=== PATIENT | female | born 1945 | race Caucasian/White ===

== ENCOUNTER 2016-11-19 11:26 | Emergency (ER) | payer MEDICARE, OTHER ==
[2016-11-19 11:32] VITALS: TEMP 98.8
[2016-11-19] MEDS ORDERED: SODIUM CHLORIDE 0.9% 1000ML 1,000 ML IVS ONE (11:39)
--- NOTE | 2016-11-19 11:42 | ED.PDOC ---
History of Present Illness - General Chief Complaint: Respiratory Problem Stated Complaint: SOB COUGH Time Seen by Provider: 11/19/16 11:34 Source: patient, RN notes reviewed, Vital Signs reviewed, family Exam Limitations: no limitations - History of Present Illness Comments: Patient reports she started last week with sore throat and congestion that has gone down into her chest. This morning she is SOB and even though she does not use it regularly she started using her oxygen at home. Timing/Duration: week Cough Quality/Degree: moderate, productive cough Possible Cause: no prior episodes Improving Factors: nothing Worsening Factors: nothing Associated Symptoms: cough, fever/chills, headache, nasal congestion, shortness of breath, sore throat Respiratory Risk Factors: exposure to illness Allergies/Adverse Reactions: Allergies Diazepam [From Valium] Allergy (Verified 11/19/16 11:34) Penicillin G Allergy (Verified 11/19/16 11:34) Home Medications: Ambulatory Orders ALPRAZolam [Xanax] 0.5 mg PO BID 10/09/12 Aspirin (Enteric Coated) 81 mg PO AM 10/09/12 Celecoxib [Celebrex] 200 mg PO AM 10/09/12 Clopidogrel Bisulfate [Plavix] 75 mg PO DAILY 10/09/12 Meclizine HCl [Antivert] 25 mg PO TID PRN 10/09/12 Nitroglycerin 0.4 mg (ER Disp) [Nitrostat] 0.4 mg SL PRN PRN 10/09/12 Potassium Chloride Tab [Micro-K] 10 meq PO BID 10/09/12 Simvastatin [Zocor] 20 mg PO HS 10/09/12 Albuterol Sulfate [Proair Hfa] 2 inh IN Q4H PRN 12/07/13 Linaclotide [Linzess] 290 mcg PO DAILY 03/02/14 Chlorzoxazone 500 mg PO QID PRN 05/31/14 Pregabalin [Lyrica] 150 mg PO BEDTIME 12/26/14 Carvedilol [Coreg] 25 mg PO BID #60 tab 12/27/14 Amlodipine Besylate [Norvasc] 5 mg PO DAILY 11/04/15 Torsemide 20 mg PO DAILY 06/01/16 Albuterol Sulfate 1.25 mg IN QID 09/20/16 HYDROcodone 5MG/APAP 325MG [[place] 5/325] 5 - 325 mg PO PRN PRN 09/20/16 Lansoprazole 30 mg PO BID 09/20/16 Azithromycin [Zithromax Z-Fortino] 1 ea PO DAILY #1 pack 11/19/16 Methylprednisolone [Medrol Dose Fortino] 4 mg PO DAILY #1 pack 11/19/16 Review of Systems - Review of Systems Constitutional: States: fever, malaise. Denies: chills, diaphoresis, weakness EENTM: States: ear pain, nose congestion, throat pain. Denies: ear discharge, nose pain Respiratory: States: cough, short of breath. Denies: orthopnea, stridor, wheezing Cardiology: States: no symptoms reported Gastrointestinal/Abdominal: States: nausea. Denies: abdominal pain, constipation, diarrhea, vomiting Genitourinary: States: no symptoms reported Musculoskeletal: States: no symptoms reported Skin: States: no symptoms reported Neurological: States: headache. Denies: numbness, paresthesia, seizure, tingling, tremors, weakness Endocrine: States: no symptoms reported Past Medical History (General) - Patient Medical History Hx Seizures: No Hx Stroke: Yes - TIA Hx Dementia: No Hx Asthma: Yes Hx of COPD: Yes Hx Cardiac Disorders: Yes - Cardiac stents, [place] Hx Congestive Heart Failure: Yes Hx Pacemaker: No Hx Hypertension: Yes Hx Thyroid Disease: No Hx Diabetes: No Hx Gastroesophageal Reflux: Yes Hx Renal Disease: No Hx Cancer: No Hx of HIV: No Hx Hepatitis C: No Hx MRSA: No Surgical History: Hysterectomy - Vaccination History Hx Tetanus, Diphtheria Vaccination: Yes Hx Influenza Vaccination: Yes Hx Pneumococcal Vaccination: Yes Immunizations Up to Date: Yes - Social History Hx Tobacco Use: Yes Hx Chewing Tobacco Use: No Hx Alcohol Use: No Hx Substance Use: No Hx Substance Use Treatment: No Hx Depression: No Feels Threatened In Home Enviroment: No Hx Physical Abuse: No Hx Emotional Abuse: No Hx Suspected Abuse: No - Female History Patient is a Female of Child Bearing Age (10 -59 yrs old): No Patient : No Family Medical History - Family History Mother Family History: Unknown Physical Exam - Physical Exam General Appearance: Alert, Ill Appearing Eye Exam: bilateral normal Neck: non-tender, full range of motion, supple, normal inspection, trachea midline Respiratory: respiratory distress, decreased breath sounds, accessory muscle use Cardiovascular/Chest: regular rate, rhythm, no edema, no gallop, no JVD, no murmur Gastrointestinal/Abdominal: normal bowel sounds, non tender, soft, no organomegaly, no pulsatile mass Extremity: normal range of motion, non-tender, normal inspection Neurologic: no motor/sensory deficits, alert, normal mood/affect, oriented x 3 Skin Exam: normal color, warm/dry Lymphatic: no adenopathy Progress - Progress Progress: 11/19/16 14:18 So far labs, X-ray and chest CT have been unremarkable. Nothing to explain her oxygen saturations in the 80's. Gave Solumedrol, IV Zithromax and Duoneb breathing treatment. Awaiting cardiac labs. 11/19/16 14:44 Discussed lab and radiology results with patient and . Most likely she has acute bronchitis with and exacerbation of her underlying COPD. Will finish IV antibiotics and then D/C home with prescriptions for antibiotics and steroids. She is currently sating 93% on 3L [place]. She has O2 at home. Departure - Departure Clinical Impression: COPD with acute exacerbation, Bronchitis Time of Disposition: 16:02 Disposition: Discharge to Home or Self Care Condition: Good Departure Forms: ED Discharge - Pt. Copy, Patient Portal Self Enrollment Instructions: DI for Acute Bronchitis Diet: resume usual diet Activity: increase activity as tolerated Prescriptions: Methylprednisolone [Medrol Dose Fortino] 4 mg PO DAILY #1 pack Azithromycin [Zithromax Z-Fortino] 1 ea PO DAILY #1 pack Home Medications: Ambulatory Orders ALPRAZolam [Xanax] 0.5 mg PO BID 10/09/12 Aspirin (Enteric Coated) 81 mg PO AM 10/09/12 Celecoxib [Celebrex] 200 mg PO AM 10/09/12 Clopidogrel Bisulfate [Plavix] 75 mg PO DAILY 10/09/12 Meclizine HCl [Antivert] 25 mg PO TID PRN 10/09/12 Nitroglycerin 0.4 mg (ER Disp) [Nitrostat] 0.4 mg SL PRN PRN 10/09/12 Potassium Chloride Tab [Micro-K] 10 meq PO BID 10/09/12 Simvastatin [Zocor] 20 mg PO HS 10/09/12 Albuterol Sulfate [Proair Hfa] 2 inh IN Q4H PRN 12/07/13 Linaclotide [Linzess] 290 mcg PO DAILY 03/02/14 Chlorzoxazone 500 mg PO QID PRN 05/31/14 Pregabalin [Lyrica] 150 mg PO BEDTIME 12/26/14 Carvedilol [Coreg] 25 mg PO BID #60 tab 12/27/14 Amlodipine Besylate [Norvasc] 5 mg PO DAILY 11/04/15 Torsemide 20 mg PO DAILY 06/01/16 Albuterol Sulfate 1.25 mg IN QID 09/20/16 HYDROcodone 5MG/APAP 325MG [[place] 5/325] 5 - 325 mg PO PRN PRN 09/20/16 Lansoprazole 30 mg PO BID 09/20/16 Azithromycin [Zithromax Z-Fortino] 1 ea PO DAILY #1 pack 11/19/16 Methylprednisolone [Medrol Dose Fortino] 4 mg PO DAILY #1 pack 11/19/16
--- NOTE | 2016-11-19 12:45 | RAD ---
EXAM DESCRIPTION: XR CHEST 2 VIEWS CLINICAL HISTORY: cough SOB COMPARISON: September 20, 2016 FINDINGS: Two-view chest x-ray shows cardiomediastinal silhouette and pulmonary vasculature to be within normal limits. Tortuosity of the thoracic aorta is seen. The lungs are mildly hyperinflated without acute appearing infiltrate or consolidation. Coronary artery stents are seen. . Costophrenic angles are sharp. Disc degenerative changes of the spine are seen. Surgical clips in the right mid neck are noted. IMPRESSION: No radiographic evidence of acute cardiopulmonary disease in this emphysematous chest. Electronically signed by: Munir Lund MD 11/19/2016 12:43
--- NOTE | 2016-11-19 13:27 | CT ---
EXAM DESCRIPTION: CT CHEST ANGIOGRAPHY WITH IV CONTRAST CLINICAL HISTORY: SOB with elevated D-Dimer COMPARISON: Chest x-ray same day TECHNIQUE: Post-contrast CTA images of the chest were obtained using pulmonary embolism protocol. 3D MIPS reconstructed images of the pulmonary arterial vasculature are obtained. CT scan done according to ALARA (As Low As Reasonably Achievable). FINDINGS: Severe Coronary artery disease with multiple corner artery stent is seen. There is severe atherosclerotic disease of the thoracic aorta and great vessels without evidence of aneurysmal dilatation or dissection. No definite filling defects or emboli are seen in the pulmonary arteries. No pathologically enlarged mediastinal, hilar, or axillary lymphadenopathy is seen. Visualized portion of the upper abdomen shows no acute findings. Lungs are normally aerated. No acute appearing infiltrates or consolidations are seen. No worrisome pulmonary nodules. Mild linear interstitial thickening in the lung bases as noted bilaterally. Osseous structures show no aggressive bony lesions. Mild degenerative changes of the spine are seen. IMPRESSION: No radiographic evidence of pulmonary embolism. Severe atherosclerotic disease is noted. Mild interstitial scarring or atelectasis is seen in lung bases. Electronically signed by: Munir Lund MD 11/19/2016 13:25
[2016-11-19] MEDS ORDERED: AZITHROMYCIN IV 500 MG in SODIUM CHLORIDE 0.9% 250ML 250 ML IVPB ONE (13:39)
[2016-11-19] MEDS ORDERED: methylPREDNISolone SODIUM SUC 125 MG/2 ML VIAL IV ONE (13:39)
[2016-11-19] MEDS ORDERED: SODIUM CHLORIDE 0.9% 250ML 250 ML ONE (13:44)
[2016-11-19] MEDS ORDERED: AZITHROMYCIN IV 500 MG VIAL IVPB ONE (13:44)
[2016-11-19] MEDS ORDERED: WATER FOR INJ 10 ML VIAL INJ ONE (13:49)
[2016-11-19] MEDS ORDERED: IPRATROPIUM/ALBUTEROL 3 ML VIAL NEB ONE (13:49)
[2016-11-19 16:24] VITALS: BP 127/85; O2SAT 92
== END 2016-11-19 16:24 | disposition home or self-care (01) ==
LOC: ER 11:26
DX: J44.1 Chronic obstructive pulmonary disease with (acute) exacerbation (principal); I25.2 Old myocardial infarction; I11.0 Hypertensive heart disease with heart failure; I50.9 Heart failure, unspecified; Z88.0 Allergy status to penicillin; K21.9 Gastro-esophageal reflux disease without esophagitis; Z88.8 Allergy status to other drugs, medicaments and biological substances; Z87.891 Personal history of nicotine dependence; Z79.899 Other long term (current) drug therapy; Z79.02 Long term (current) use of antithrombotics/antiplatelets; Z79.82 Long term (current) use of aspirin
CPT/HCPCS: 36415; 71020; 71275; 80053; 82550; 82553; 83880; 84484; 85025; 85379; 94640; A4216; J0456; J2930; J7030; J7050; J7620

== ENCOUNTER 2017-01-04 13:35 | Emergency (ER) | payer MEDICARE, OTHER ==
--- NOTE | 2017-01-04 15:12 | RAD ---
PROCEDURE: Chest,2 Views CLINICAL HISTORY: sob INDICATION: Same as above COMPARISON: 11/19/2016 TECHNIQUE: PA and and lateral chest radiographs were obtained. FINDINGS: Note is again made of benign calcific granulomatous lung disease There are no discrete airspace infiltrates, pneumothoraces or pleural effusions. The pulmonary vascularity is normal The cardiomediastinal silhouette is unremarkable for patient's age and sex. IMPRESSION: There is no acute pleural-parenchymal process seen in the imaged lung house. Place of interpretation: [facility]. Electronically signed by: Dank Ross MD 01/04/2017 3:11 PM [employer]
[2017-01-04] MEDS ORDERED: predniSONE 20 MG TAB PO ONE (15:30)
[2017-01-04] MEDS ORDERED: DOXYCYCLINE HYCLATE CAP 100 MG CAP PO ONE (15:30)
[2017-01-04] MEDS ORDERED: IPRATROPIUM/ALBUTEROL 3 ML VIAL NEB ONE (15:30)
--- NOTE | 2017-01-04 15:33 | ED.PDOC ---
History of Present Illness - General Chief Complaint: Respiratory Problem Stated Complaint: shortness of breath Time Seen by Provider: 01/04/17 13:53 Source: patient Exam Limitations: no limitations - History of Present Illness Initial Comments: the patient is a 71-year-old female presenting to the emergency room secondary to progressive shortness of breath over the last week. She does have a long-standing history of COPD with multiple exacerbations in the past. She denies any fevers. She reports having a cough very hard to move up her mucus. She is saturating okay on her home oxygen. No real sore throat and mild runny nose. No syncope or near-syncope. No chest pain otherwise. No palpitations. She does get significantly more short of breath with exertion. Timing/Duration: 1 week Severity: moderate Improving Factors: nothing Worsening Factors: nothing Associated Symptoms: chest pain - with cough, cough, loss of appetite, malaise, shortness of breath Allergies/Adverse Reactions: Allergies Diazepam [From Valium] Allergy (Verified 11/19/16 11:34) Penicillin G Allergy (Verified 11/19/16 11:34) Home Medications: Ambulatory Orders ALPRAZolam [Xanax] 0.5 mg PO BID 10/09/12 Aspirin (Enteric Coated) 81 mg PO AM 10/09/12 Celecoxib [Celebrex] 200 mg PO AM 10/09/12 Clopidogrel Bisulfate [Plavix] 75 mg PO DAILY 10/09/12 Meclizine HCl [Antivert] 25 mg PO TID PRN 10/09/12 Nitroglycerin 0.4 mg (ER Disp) [Nitrostat] 0.4 mg SL PRN PRN 10/09/12 Potassium Chloride Tab [Micro-K] 10 meq PO BID 10/09/12 Simvastatin [Zocor] 20 mg PO HS 10/09/12 Albuterol Sulfate [Proair Hfa] 2 inh IN Q4H PRN 12/07/13 Linaclotide [Linzess] 290 mcg PO DAILY 03/02/14 Chlorzoxazone 500 mg PO QID PRN 05/31/14 Pregabalin [Lyrica] 150 mg PO BEDTIME 12/26/14 Carvedilol [Coreg] 25 mg PO BID #60 tab 12/27/14 Amlodipine Besylate [Norvasc] 5 mg PO DAILY 11/04/15 Torsemide 20 mg PO DAILY 06/01/16 Albuterol Sulfate 1.25 mg IN QID 09/20/16 HYDROcodone 5MG/APAP 325MG [[place] 5/325] 5 - 325 mg PO PRN PRN 09/20/16 Lansoprazole 30 mg PO BID 09/20/16 Azithromycin [Zithromax Z-Fortino] 1 ea PO DAILY #1 pack 11/19/16 Ipratropium/Albuterol [Duoneb] 3 ml NEB Q4HR PRN #25 vial 11/19/16 Methylprednisolone [Medrol Dose Fortino] 4 mg PO DAILY #1 pack 11/19/16 Doxycycline (Monohydrate) [Doxycycline Monohydrate] 100 mg PO DAILY #5 cap 01/04 predniSONE [Prednisone] 20 mg PO DAILY #5 tab 01/04/17 Review of Systems - Review of Systems Constitutional: States: malaise EENTM: States: nose congestion Respiratory: States: cough, short of breath Cardiology: States: no symptoms reported, chest pain - only with cough Gastrointestinal/Abdominal: States: no symptoms reported Genitourinary: States: no symptoms reported Musculoskeletal: States: no symptoms reported Skin: States: no symptoms reported Neurological: States: no symptoms reported Endocrine: States: no symptoms reported All other Systems: No Change from Baseline Past Medical History (General) - Patient Medical History Hx Seizures: No Hx Stroke: Yes - TIA Hx Dementia: No Hx Asthma: Yes Hx of COPD: Yes Hx Cardiac Disorders: Yes - Cardiac stents, [place] Hx Congestive Heart Failure: Yes Hx Pacemaker: No Hx Hypertension: Yes Hx Thyroid Disease: No Hx Diabetes: No Hx Gastroesophageal Reflux: Yes Hx Renal Disease: No Hx Cancer: No Hx of HIV: No Hx Hepatitis C: No Hx MRSA: No - Vaccination History Hx Tetanus, Diphtheria Vaccination: Yes Hx Influenza Vaccination: Yes Hx Pneumococcal Vaccination: Yes - Social History Hx Tobacco Use: Yes Hx Chewing Tobacco Use: No Hx Alcohol Use: No Hx Substance Use: No Hx Substance Use Treatment: No Hx Depression: No Hx Physical Abuse: No Hx Emotional Abuse: No Hx Suspected Abuse: No - Female History Patient : No Family Medical History - Family History Mother Family History: Unknown Physical Exam - Physical Exam General Appearance: Alert, Anxious, No apparent distress Eye Exam: bilateral normal Ears, Nose, Throat: hearing grossly normal, nasal congestion Neck: non-tender, full range of motion, supple Respiratory: chest non-tender, no respiratory distress, no accessory muscle use , rhonchi - scattered, wheezing - mild scattered Cardiovascular/Chest: normal peripheral pulses, regular rate, rhythm, no edema Peripheral Pulses: radial,right: 2+, radial,left: 2+, dorsalis pedis,right: 2+, dorsalis pedis,left: 2+, posterior tibialis,right: 2+, posterior tibialis,left: 2+ Gastrointestinal/Abdominal: non tender, soft Rectal Exam: deferred Back Exam: normal inspection Extremity: normal range of motion, non-tender, normal inspection, no pedal edema , normal capillary refill Neurologic: alert, normal mood/affect, oriented x 3 Skin Exam: normal color Progress - Progress Progress: 01/04/17 15:34 the patient is a 71-year-old female presenting to the emergency room with what appears to be a COPD exacerbation. The patient will be placed on doxycycline and oral prednisone for a period of 5 days. She needs to increase her albuterol treatments to every 4 hours for the next 3 days. She needs to continue her oxygen at home. Additionally she can use preservative-free eyedrops to nebulized between her albuterol treatments to help thin out the mucous secretions. ER warnings were given for any worsening. Keep well- hydrated. Follow up with her primary care doctor early next week. vital signs have been stable and the patient is in no acute distress at this time. 01/04/17 15:36 - Results/Orders Results/Orders: Laboratory Last Values WBC 9.5 K/mm3 (4.8-10.8) 01/04/17 14:04 RBC 5.21 M/mm3 (4.20-5.40) 01/04/17 14:04 Hgb 15.2 gm/dL (12.0-16.0) 01/04/17 14:04 Hct 45.2 % (36.0-47.0) 01/04/17 14:04 MCV 86.7 fl (81.0-99.0) 01/04/17 14:04 MCH 29.2 pg (27.0-31.0) 01/04/17 14:04 MCHC 33.6 g/dL (33.0-37.0) 01/04/17 14:04 RDW 14.9 % (11.5-14.5) H 01/04/17 14:04 Plt Count 307 K/mm3 (130-400) 01/04/17 14:04 MPV 9.5 fl (7.40-10.4) 01/04/17 14:04 Absolute Neuts (auto) 4.30 K/uL (1.8-6.8) 01/04/17 14:04 Absolute Lymphs (auto) 3.20 K/uL (1.0-3.4) 01/04/17 14:04 Absolute Monos (auto) 1.00 K/uL (0.2-0.8) H 01/04/17 14:04 Absolute Eos (auto) 0.90 K/uL (0.0-0.4) H 01/04/17 14:04 Absolute Basos (auto) 0.10 K/uL (0.0-0.1) 01/04/17 14:04 Neutrophils % 45.3 % (42.0-78.0) 01/04/17 14:04 Lymphocytes % 33.9 % (20.0-50.0) 01/04/17 14:04 Monocytes % 11.0 % (2.0-9.0) H 01/04/17 14:04 Eosinophils % 9.2 % (1.0-5.0) H 01/04/17 14:04 Basophils % 0.6 % (0.0-2.0) 01/04/17 14:04 PT 12.0 SECONDS (9.4-12.5) 01/04/17 14:04 INR 1.060 01/04/17 14:04 PTT (SP) 32.7 SECONDS (25.1-36.5) 01/04/17 14:04 D-Dimer, Quantitative 398 ng/mL (0-230) H* 01/04/17 14:04 Sodium 135 mmol/L (135-145) 01/04/17 14:04 Potassium 4.0 mmol/L (3.6-5.0) 01/04/17 14:04 Chloride 101 mmol/L (101-111) 01/04/17 14:04 Carbon Dioxide 24 mmol/L (21-31) 01/04/17 14:04 Anion Gap 14.0 (12-18) 01/04/17 14:04 BUN 13 mg/dL (7-18) 01/04/17 14:04 Creatinine 0.85 mg/dL (0.6-1.3) 01/04/17 14:04 BUN/Creatinine Ratio 15.3 (10-20) 01/04/17 14:04 Random Glucose 113 mg/dL (70-105) H 01/04/17 14:04 Serum Osmolality 271.0 mOsm/L (275-295) L 01/04/17 14:04 Calcium 9.6 mg/dL (8.4-10.2) 01/04/17 14:04 Total Bilirubin 0.7 mg/dL (0.2-1.0) 01/04/17 14:04 AST 23 IU/L (10-42) 01/04/17 14:04 ALT 13 IU/L (10-60) 01/04/17 14:04 Alkaline Phosphatase 103 IU/L (42-121) 01/04/17 14:04 Creatine Kinase 36 IU/L (26-140) 01/04/17 14:04 CK-MB (CK-2) 1.5 ng/mL (0.0-4.4) 01/04/17 14:04 CK-MB (CK-2) % Not Reportable 01/04/17 14:04 Troponin I < 0.02 ng/mL (0.01-0.05) 01/04/17 14:04 B-Natriuretic Peptide 35.1 pg/ml (0-100) 01/04/17 14:04 Serum Total Protein 7.6 gm/dL (6.4-8.2) 01/04/17 14:04 Albumin 4.3 g/dl (3.2-5.5) 01/04/17 14:04 Globulin 3.3 gm/dL (2.3-3.5) 01/04/17 14:04 Albumin/Globulin Ratio 1.3 (1.1-1.9) 01/04/17 14:04 chest x-ray shows no obvious pneumonia. There are changes of COPD. EKG shows normal sinus rhythm with first-degree AV block. She does have a left bundle branch block. Difficult to interpret otherwise. These findings are consistent with previous EKGs. Departure - Departure Clinical Impression: COPD with acute exacerbation Disposition: Discharge to Home or Self Care Condition: Fair Departure Forms: ED Discharge - Pt. Copy, Patient Portal Self Enrollment Instructions: Emphysema, DI for Emphysema Diet: regular diet Activity: increase activity as tolerated Referrals: Faustino Hernandez MD [Primary Care Provider] - 1-5 Days Prescriptions: Doxycycline (Monohydrate) [Doxycycline Monohydrate] 100 mg PO DAILY #5 cap predniSONE [Prednisone] 20 mg PO DAILY #5 tab Home Medications: Ambulatory Orders ALPRAZolam [Xanax] 0.5 mg PO BID 10/09/12 Aspirin (Enteric Coated) 81 mg PO AM 10/09/12 Celecoxib [Celebrex] 200 mg PO AM 10/09/12 Clopidogrel Bisulfate [Plavix] 75 mg PO DAILY 10/09/12 Meclizine HCl [Antivert] 25 mg PO TID PRN 10/09/12 Nitroglycerin 0.4 mg (ER Disp) [Nitrostat] 0.4 mg SL PRN PRN 10/09/12 Potassium Chloride Tab [Micro-K] 10 meq PO BID 10/09/12 Simvastatin [Zocor] 20 mg PO HS 10/09/12 Albuterol Sulfate [Proair Hfa] 2 inh IN Q4H PRN 12/07/13 Linaclotide [Linzess] 290 mcg PO DAILY 03/02/14 Chlorzoxazone 500 mg PO QID PRN 05/31/14 Pregabalin [Lyrica] 150 mg PO BEDTIME 12/26/14 Carvedilol [Coreg] 25 mg PO BID #60 tab 12/27/14 Amlodipine Besylate [Norvasc] 5 mg PO DAILY 11/04/15 Torsemide 20 mg PO DAILY 06/01/16 Albuterol Sulfate 1.25 mg IN QID 09/20/16 HYDROcodone 5MG/APAP 325MG [[place] 5/325] 5 - 325 mg PO PRN PRN 09/20/16 Lansoprazole 30 mg PO BID 09/20/16 Azithromycin [Zithromax Z-Fortino] 1 ea PO DAILY #1 pack 11/19/16 Ipratropium/Albuterol [Duoneb] 3 ml NEB Q4HR PRN #25 vial 11/19/16 Methylprednisolone [Medrol Dose Fortino] 4 mg PO DAILY #1 pack 11/19/16 Doxycycline (Monohydrate) [Doxycycline Monohydrate] 100 mg PO DAILY #5 cap 01/04 predniSONE [Prednisone] 20 mg PO DAILY #5 tab 01/04/17 Additional Instructions: the patient is a 71-year-old female presenting to the emergency room with what appears to be a COPD exacerbation. The patient will be placed on doxycycline and oral prednisone for a period of 5 days. She needs to increase her albuterol treatments to every 4 hours for the next 3 days. She needs to continue her oxygen at home. Additionally she can use preservative-free eyedrops to nebulize between her albuterol treatments to help thin out the mucous secretions. ER warnings were given for any worsening. Keep well- hydrated. Follow up with her primary care doctor early next week.
[2017-01-04 15:58] VITALS: TEMP 97.9
[2017-01-04 16:41] VITALS: BP 109/66; O2SAT 99
== END 2017-01-04 16:20 | disposition home or self-care (01) ==
LOC: ER 13:35
DX: J44.1 Chronic obstructive pulmonary disease with (acute) exacerbation (principal); I44.7 Left bundle-branch block, unspecified; I44.0 Atrioventricular block, first degree; I11.0 Hypertensive heart disease with heart failure; I50.9 Heart failure, unspecified; I25.2 Old myocardial infarction; K21.9 Gastro-esophageal reflux disease without esophagitis; Z88.0 Allergy status to penicillin; Z88.8 Allergy status to other drugs, medicaments and biological substances; Z79.82 Long term (current) use of aspirin; Z79.899 Other long term (current) drug therapy; Z86.73 Personal history of transient ischemic attack (TIA), and cerebral infarction without residual deficits; Z98.61 Coronary angioplasty status; Z87.891 Personal history of nicotine dependence
CPT/HCPCS: 36415; 71020; 80053; 81001; 82550; 82553; 83880; 84484; 85025; 85379; 85610; 85730; 93005; 94640; J7512; J7620

== ENCOUNTER 2017-01-19 13:08 | Emergency (ER) | payer MEDICARE, OTHER ==
--- NOTE | 2017-01-19 14:07 | ED.PDOC ---
History of Present Illness - General Chief Complaint: Respiratory Problem Stated Complaint: shortness of breath, sorethroat cough Time Seen by Provider: 01/19/17 13:52 Source: patient, RN notes reviewed, Vital Signs reviewed, family Exam Limitations: no limitations - History of Present Illness Comments: Patient reports cold symptoms that started 3-4 days ago and are worsening. Runny nose/congestion, cough and SOB. Having to use her oxygen and inhalers more than normal. Concerned that she may have strep and would like to be checked. Timing/Duration: constant, getting worse Cough Quality/Degree: moderate, productive cough Possible Cause: frequent episodes - of COPD exacerbation with bronchitis Improving Factors: medication Worsening Factors: nothing Associated Symptoms: cough, nasal congestion, nasal drainage, shortness of breath, wheezing Respiratory Risk Factors: no cause identified Allergies/Adverse Reactions: Allergies Diazepam [From Valium] Allergy (Verified 01/19/17 13:27) Penicillin G Allergy (Verified 01/19/17 13:27) Home Medications: Ambulatory Orders ALPRAZolam [Xanax] 0.5 mg PO BID 10/09/12 Aspirin (Enteric Coated) 81 mg PO AM 10/09/12 Celecoxib [Celebrex] 200 mg PO AM 10/09/12 Clopidogrel Bisulfate [Plavix] 75 mg PO DAILY 10/09/12 Meclizine HCl [Antivert] 25 mg PO TID PRN 10/09/12 Nitroglycerin 0.4 mg (ER Disp) [Nitrostat] 0.4 mg SL PRN PRN 10/09/12 Potassium Chloride Tab [Micro-K] 10 meq PO BID 10/09/12 Simvastatin [Zocor] 20 mg PO HS 10/09/12 Albuterol Sulfate [Proair Hfa] 2 inh IN Q4H PRN 12/07/13 Linaclotide [Linzess] 290 mcg PO DAILY 03/02/14 Chlorzoxazone 500 mg PO QID PRN 05/31/14 Pregabalin [Lyrica] 150 mg PO BEDTIME 12/26/14 Carvedilol [Coreg] 25 mg PO BID #60 tab 12/27/14 Amlodipine Besylate [Norvasc] 5 mg PO DAILY 11/04/15 Torsemide 20 mg PO DAILY 06/01/16 Albuterol Sulfate 1.25 mg IN QID 09/20/16 HYDROcodone 5MG/APAP 325MG [[place] 5/325] 5 - 325 mg PO PRN PRN 09/20/16 Lansoprazole 30 mg PO BID 09/20/16 Azithromycin [Zithromax Z-Fortino] 1 ea PO DAILY #1 pack 11/19/16 Ipratropium/Albuterol [Duoneb] 3 ml NEB Q4HR PRN #25 vial 11/19/16 Methylprednisolone [Medrol Dose Fortino] 4 mg PO DAILY #1 pack 11/19/16 Doxycycline (Monohydrate) [Doxycycline Monohydrate] 100 mg PO DAILY #5 cap 01/04 predniSONE [Prednisone] 20 mg PO DAILY #5 tab 01/04/17 Methylprednisolone [Medrol Dose Fortino] 4 mg PO DAILY #1 pack 01/19/17 Sulfamethoxazole-Trimethoprim [Bactrim Ds 800-160 mg] 1 tab PO BID #20 tab 01/19 Review of Systems - Review of Systems Constitutional: States: malaise. Denies: chills, fever EENTM: States: see HPI, nose congestion, throat pain Respiratory: States: cough, short of breath, wheezing. Denies: orthopnea, stridor Cardiology: States: no symptoms reported. Denies: chest pain, palpitations Gastrointestinal/Abdominal: States: no symptoms reported Genitourinary: States: no symptoms reported Musculoskeletal: States: no symptoms reported Skin: States: no symptoms reported Neurological: States: no symptoms reported. Denies: headache Endocrine: States: no symptoms reported Hematologic/Lymphatic: States: no symptoms reported Past Medical History (General) - Patient Medical History Hx Seizures: No Hx Stroke: Yes - TIA Hx Dementia: No Hx Asthma: Yes Hx of COPD: Yes Hx Cardiac Disorders: Yes - Cardiac stents, IN Hx Congestive Heart Failure: Yes Hx Pacemaker: No Hx Hypertension: Yes Hx Thyroid Disease: No Hx Diabetes: No Hx Gastroesophageal Reflux: Yes Hx Renal Disease: No Hx Cancer: No Hx of HIV: No Hx Hepatitis C: No Hx MRSA: No Surgical History: tonsillectomy, Hysterectomy - Vaccination History Hx Tetanus, Diphtheria Vaccination: Yes Hx Influenza Vaccination: Yes Hx Pneumococcal Vaccination: Yes - Social History Hx Tobacco Use: Yes Hx Chewing Tobacco Use: No Hx Alcohol Use: No Hx Substance Use: No Hx Substance Use Treatment: No Hx Depression: No Hx Physical Abuse: No Hx Emotional Abuse: No Hx Suspected Abuse: No - Activities of Daily Living Hospice Agency (if applicable):: None - Female History Patient is a Female of Child Bearing Age (10 -59 yrs old): No Patient : No Family Medical History - Family History Mother Family History: Unknown Physical Exam - Physical Exam General Appearance: Alert, Comfortable, No apparent distress, Well Developed, Well Groomed, Well Hydrated, Well Nourished ENT Exam: hearing grossly normal, TMs normal, nasal drainage, pharyngeal erythema Neck: non-tender, full range of motion, supple, lymphadenopathy (R), lymphadenopathy (L) Respiratory: no respiratory distress, no accessory muscle use, crackles - RLL, wheezing - throughout, inspiration Cardiovascular/Chest: regular rate, rhythm, no edema, no gallop, no JVD, no murmur Extremity: normal range of motion, non-tender, normal inspection Neurologic: no motor/sensory deficits, alert, normal mood/affect, oriented x 3 Skin Exam: normal color, warm/dry Lymphatic: no adenopathy Progress - Results/Orders Results/Orders: Laboratory Tests 01/19/17 14:12 WBC 14.7 H RBC 5.29 Hgb 15.4 Hct 46.3 MCV 87.5 MCH 29.1 MCHC 33.3 RDW 15.4 H Plt Count 264 MPV 9.5 Absolute Neuts (auto) 8.80 H Absolute Lymphs (auto) 2.70 Absolute Monos (auto) 1.10 H Absolute Eos (auto) 1.90 H Absolute Basos (auto) 0.10 Neutrophils % 60.2 Lymphocytes % 18.3 L Monocytes % 7.5 Eosinophils % 13.2 H Basophils % 0.8 Sodium 139 Potassium 3.7 Chloride 105 Carbon Dioxide 25 Anion Gap 12.7 BUN 8 Creatinine 0.70 BUN/Creatinine Ratio 11.4 Random Glucose 102 Serum Osmolality 276.1 Calcium 9.9 Total Bilirubin 0.6 AST 22 ALT 16 Alkaline Phosphatase 103 Serum Total Protein 7.7 Albumin 4.4 Globulin 3.3 Albumin/Globulin Ratio 1.3 Vital Signs - 24 hr 01/19/17 01/19/17 13:15 13:29 Temperature 97.6 F Pulse Rate [ 104 H pulse ox] Respiratory 24 24 Rate Blood Pressure 154/65 [Left Arm] O2 Sat by Pulse 95 Oximetry Rapid Strep - Negative - EKG/XRAY/CT XRAY: chest - No acute process per Radiology Departure - Departure Clinical Impression: COPD with acute exacerbation, Bronchitis Time of Disposition: 15:25 Disposition: Discharge to Home or Self Care Condition: Good Departure Forms: ED Discharge - Pt. Copy, Patient Portal Self Enrollment Instructions: DI for Acute Bronchitis, DI for Chronic Obstructive Pulmonary Disease Diet: resume usual diet Activity: increase activity as tolerated Referrals: Faustino Hernandez MD [Primary Care Provider] - 1-5 Days Prescriptions: Sulfamethoxazole-Trimethoprim [Bactrim Ds 800-160 mg] 1 tab PO BID #20 tab Methylprednisolone [Medrol Dose Fortino] 4 mg PO DAILY #1 pack Home Medications: Ambulatory Orders ALPRAZolam [Xanax] 0.5 mg PO BID 10/09/12 Aspirin (Enteric Coated) 81 mg PO AM 10/09/12 Celecoxib [Celebrex] 200 mg PO AM 10/09/12 Clopidogrel Bisulfate [Plavix] 75 mg PO DAILY 10/09/12 Meclizine HCl [Antivert] 25 mg PO TID PRN 10/09/12 Nitroglycerin 0.4 mg (ER Disp) [Nitrostat] 0.4 mg SL PRN PRN 10/09/12 Potassium Chloride Tab [Micro-K] 10 meq PO BID 10/09/12 Simvastatin [Zocor] 20 mg PO HS 10/09/12 Albuterol Sulfate [Proair Hfa] 2 inh IN Q4H PRN 12/07/13 Linaclotide [Linzess] 290 mcg PO DAILY 03/02/14 Chlorzoxazone 500 mg PO QID PRN 05/31/14 Pregabalin [Lyrica] 150 mg PO BEDTIME 12/26/14 Carvedilol [Coreg] 25 mg PO BID #60 tab 12/27/14 Amlodipine Besylate [Norvasc] 5 mg PO DAILY 11/04/15 Torsemide 20 mg PO DAILY 06/01/16 Albuterol Sulfate 1.25 mg IN QID 09/20/16 HYDROcodone 5MG/APAP 325MG [[place] 5/325] 5 - 325 mg PO PRN PRN 09/20/16 Lansoprazole 30 mg PO BID 09/20/16 Azithromycin [Zithromax Z-Fortino] 1 ea PO DAILY #1 pack 11/19/16 Ipratropium/Albuterol [Duoneb] 3 ml NEB Q4HR PRN #25 vial 11/19/16 Methylprednisolone [Medrol Dose Fortino] 4 mg PO DAILY #1 pack 11/19/16 Doxycycline (Monohydrate) [Doxycycline Monohydrate] 100 mg PO DAILY #5 cap 01/04 predniSONE [Prednisone] 20 mg PO DAILY #5 tab 01/04/17 Methylprednisolone [Medrol Dose Fortino] 4 mg PO DAILY #1 pack 01/19/17 Sulfamethoxazole-Trimethoprim [Bactrim Ds 800-160 mg] 1 tab PO BID #20 tab 01/19
--- NOTE | 2017-01-19 14:36 | RAD ---
PROCEDURE: Chest,2 Views CLINICAL HISTORY: Cough/SOB INDICATION: Same as above COMPARISON: 01/04/2017 TECHNIQUE: PA and and lateral chest radiographs were obtained. FINDINGS: The lung house are well inflated. There are no discrete airspace infiltrates, pneumothoraces or pleural effusions. The pulmonary vascularity is normal The cardiomediastinal silhouette is stable. Coronary artery calcification/stents are noted in the right coronary distribution. IMPRESSION: There is no acute pleural-parenchymal process seen in the imaged lung house. Place of interpretation: [facility]. Electronically signed by: Dank Ross MD 01/19/2017 2:35 PM CDT
[2017-01-19] MEDS: methylPREDNISolone SODIUM SUC 125 MG/2 ML VIAL IV ONE (14:40)
[2017-01-19] MEDS: IPRATROPIUM/ALBUTEROL 3 ML VIAL NEB ONE (14:50)
[2017-01-19 14:55] VITALS: O2SAT 96
[2017-01-19 15:49] VITALS: BP 136/72; TEMP 98.2
== END 2017-01-19 15:40 | disposition home or self-care (01) ==
LOC: ER 13:08
DX: J44.1 Chronic obstructive pulmonary disease with (acute) exacerbation (principal); I25.2 Old myocardial infarction; I11.0 Hypertensive heart disease with heart failure; I50.9 Heart failure, unspecified; K21.9 Gastro-esophageal reflux disease without esophagitis; Z87.891 Personal history of nicotine dependence; Z88.0 Allergy status to penicillin; Z88.8 Allergy status to other drugs, medicaments and biological substances; Z79.82 Long term (current) use of aspirin; Z79.899 Other long term (current) drug therapy; Z79.02 Long term (current) use of antithrombotics/antiplatelets; Z86.73 Personal history of transient ischemic attack (TIA), and cerebral infarction without residual deficits
CPT/HCPCS: 36415; 71020; 80053; 85025; 87070; 87651; 94640; J2930; J7620

== ENCOUNTER → 2017-01-22 | Outpatient (CLI) | payer MEDICARE, OTHER | END | disposition home or self-care (01) | LOC: GMAH 11:18 | PROVIDERS: ATTEND Family Medicine | DX: I10 Essential (primary) hypertension (principal) ==

== ENCOUNTER 2017-01-23 15:01 | Inpatient (IN) | payer MEDICARE, OTHER ==
--- NOTE | 2017-01-23 15:02 | HP ---
SUPERVISING PHYSICIAN: Enrrique Montalvo M.D. CHIEF COMPLAINT: Shortness of breath and wheezing. HISTORY OF PRESENT ILLNESS: Ms. Beltrán is a 71 year-old female patient of Dr. Hernandez's who was seen in the clinic today for a routine wellness visit. She has a significant history of chronic obstructive pulmonary disease and in the last 30 days has had multiple episodes of exacerbation of her chronic obstructive pulmonary disease requiring antibiotics and steroids. She was seen in the E. R. this past Friday and given a prescription for Bactrim and a Medrol Dosepak. In the clinic today, the patient was having some significant cough with purulent sputum production and worsening wheezing and dyspnea with O2 sats showing 91% on nasal cannula at 2 liters. The patient is O2 dependent and wears O2 at home 26/05. She is a current smoker approximately half a pack a day. X-rays completed in the clinic compared to this past Friday show no significant changes, just COPD-appearing lungs with no obvious consolidations. Initial white count in the Emergency Room this past Friday was 14,000 and she had a sputum culture that showed normal eddie. Today, laboratory studies in the clinic showed her to have a white count of 17,000. The patient has been on multiple antibiotics this month with initially being placed on Doxycycline on 01/04/17 and again followed-up for additional antibiotic coverage on 01/19/17 and started on Bactrim. Given that the patient has had minimal improvement in her symptoms and continues to have purulent- looking sputum, and worsening of her dyspnea despite utilizing oxygen and multiple rounds of steroids, the patient is going to be admitted directly from the clinic for exacerbation of her chronic obstructive pulmonary disease having failed to respond to outpatient treatment plan. She is admitted in stable condition to the Medical/Surgical floor. PAST MEDICAL HISTORY: 1. Coronary artery disease with stents placed. 2. Chronic obstructive pulmonary disease with tobacco abuse in a current smoker. 3. Abdominal aortic aneurysm followed by Dr. Hernandez. 4. Chronic neck pain after surgery. 5. Hypertension. 6. Congestive heart failure, unknown etiology without a current echocardiogram for review. 7. Atherosclerotic cardiovascular disease and carotid occlusive disease requiring surgery. 8. Gastroesophageal reflux disease. 9. History of left bundle branch block. 10. Chronic constipation. PAST SURGICAL HISTORY: 1. Lower back surgeries times 5 with cervical spine on one occasion. 2. Coronary stents times 6. 3. Carotid endarterectomy in 2015 on the right side. 4. Hysterectomy. 5. Tubal ligation. 6. Left wrist fracture surgery. 7. Tonsillectomy. 8. Adenoidectomy. CURRENT MEDICATIONS: Please refer to the electronic medical records for an updated and verified list of home medications. ALLERGIES: PENICILLIN, DIAZEPAM, AZITHROMYCIN AND VARENICLINE. FAMILY HISTORY: Positive for coronary artery disease, cancers and diabetes. SOCIAL HISTORY: The patient is . She lives in [place]. She is retired. She is a current smoker having smoked for greater than 30 years, continues to smoke approximately half a pack of cigarettes per day. She does not drink alcohol nor does she use any illicit drugs. REVIEW OF SYSTEMS: GENERAL: No significant weight change. Denies any fever or chills. HEENT: Positive for nasal congestion and frequent rhinorrhea. Denies any eye pain or any change in vision. CARDIOVASCULAR: Negative for any chest pains, palpitations or any syncopal episodes. RESPIRATORY: Positive for worsening cough as per History of Present Illness with increasing dyspnea and frequent wheezing. GASTROINTESTINAL: Positive for constipation for which she takes Linzess, but negative for any diarrhea, nausea or vomiting. GENITOURINARY : Negative for any hematuria, polyuria or any other urological complaints. NEUROLOGIC: No focal neurological weaknesses. PHYSICAL EXAMINATION: VITAL SIGNS: Temperature 98.0, pulse 73, blood pressure 143/73, respirations initially 24, short of breath, on nasal cannula satting 94% at 3 liters. Admission weight 71.2 kg. HEENT: Tympanic membranes are clear bilaterally. Oropharynx is pink with dry mucosal membranes noted. There are no lesions. Posterior pharynx is mildly erythematous. NECK: No jugular venous distention. CHEST: Lungs are notably coarse throughout with some inspiratory and expiratory wheezing and diminished breath sounds towards the bases. CARDIOVASCULAR: Regular rate and rhythm without appreciable murmurs, gallops, or rubs. ABDOMEN: Soft, non-tender. Positive bowel sounds. EXTREMITIES: No clubbing, cyanosis or edema. NEUROLOGIC: She is alert and oriented times three. LABORATORY: On admission to the Medical/Surgical floor shows white count 16.5, hemoglobin 16.2, hematocrit 48.2, platelet count 324,000. Differential shows to be without a left shift initially. Chemistries show normal electrolytes with potassium 3.9, BUN 27, creatinine 0.96, glucose 126. Magnesium 2.2, calcium 9.7. BNP was normal at 30. Liver functions show to be within normal limits. Urinalysis showed to be within normal limits. Group A Strep rapid by PCR was negative. MICROBIOLOGY: Influenza A and B by PCR were both negative. She had 2 blood cultures pending. Sputum is pending. RADIOLOGY: Chest x-ray per radiology interpretation shows hyperexpansion of the chest consistent with chronic obstructive pulmonary disease. ASSESSMENT: 1. Acute exacerbation of chronic obstructive pulmonary disease having failed to respond to multiple rounds of antibiotic therapy including corticosteroids with concerns of early pneumonia development. 2. Leukocytosis possibly secondary to number 1, chronic secondary to recent steroid administration. 3. Moderate dehydration. 4. History of coronary artery disease with stents. 5. History of abdominal aortic aneurysm. 6. History of chronic tobacco abuse in a patient with longstanding history of chronic obstructive pulmonary disease. 7. Chronic neck pain and lower back pain. 8. Hypertension. 9. History of congestive heart failure, unknown etiology without current echocardiogram for review with a normal BNP on admission. 10. Gastroesophageal reflux disease. PLAN: The patient will be directly admitted for continuation of treatment of exacerbation of her chronic obstructive pulmonary disease having failed to respond to outpatient treatment. Will obtain cultures and await those results to further target antibiotic therapy. Given that she is allergic to Azithromycin, will change her antibiotic regimen to include Levaquin. Initially she was given Rocephin on direct admission, but later it was discovered that she was allergic to Azithromycin, therefore will change her to Levaquin. She will also be started on Solu-Medrol and aggressive pulmonary hygiene along with bronchodilator treatment. Will start her on some IV fluids for hydration therapy. Anticipate length of stay to be 2 to 3 days with clinical reevaluation along with repeat laboratory studies in the morning. Until discharge, will continue to monitor the patient closely. Once the patient is clinically stable enough to be discharged, she can have close clinical followup in the outpatient setting with continued antibiotic therapy to be seen by Dr. Hernandez, her primary care provider. Until then, will follow the patient closely and treat appropriately. #[id number] [facility]
[2017-01-23] MEDS ORDERED: IPRATROPIUM/ALBUTEROL 3 ML VIAL INH PRN (15:59)
[2017-01-23] MEDS ORDERED: ACETAMINOPHEN 325 MG TAB PO PRN (15:59)
[2017-01-23] MEDS ORDERED: IV SET AND CAP CHANGE INJ INJ SCH (16:00)
[2017-01-23] MEDS ORDERED: cefTRIAXone SODIUM 1 GM in SODIUM CHL 0.9% 50ML MIN-BAG+ 50 ML IVPB SCH (16:00)
[2017-01-23] MEDS ORDERED: SODIUM CHLORIDE 0.9% 250ML 250 ML ONE (16:26)
[2017-01-23] MEDS ORDERED: SODIUM CHL 0.9% 50ML MIN-BAG+ 50 ML IVPB ONE (16:27)
[2017-01-23] MEDS ORDERED: cefTRIAXone SODIUM 1 GM VIAL ONE (16:27)
[2017-01-23] MEDS ORDERED: AZITHROMYCIN IV 500 MG VIAL IVPB ONE (16:28)
[2017-01-23] MEDS ORDERED: AZITHROMYCIN IV 500 MG in SODIUM CHLORIDE 0.9% 250ML 250 ML IVPB SCH (16:30)
--- NOTE | 2017-01-23 17:04 | RAD ---
EXAM DESCRIPTION: Chest,2 Views CLINICAL HISTORY: 71 years Female, COPD exacerbation COMPARISON: January TECHNIQUE: PA/lateral FINDINGS: Hyperexpansion of the chest is observed. No focal infiltrate is noted. The heart is within range of normal. Coronary artery calcification is noted. IMPRESSION: Hyperexpansion the chest is observed consistent with chronic obstructive pulmonary disease. Its more pronounced than seen previously. Electronically signed by: Pee Christine MD 01/23/2017 5:04 PM CDT
[2017-01-23] MEDS: methylPREDNISolone SODIUM SUC 40 MG/ML VIAL IV SCH ×2 (17:19→22:30)
[2017-01-23] MEDS: IPRATROPIUM/ALBUTEROL 3 ML VIAL INH SCH ×2 (17:30→20:55)
[2017-01-23] MEDS ORDERED: NICOTINE PATCH 14 MG TD SCH (18:00)
[2017-01-23] MEDS ORDERED: SODIUM CHLORIDE 0.9% 1000ML 0 ML ONE (18:00)
[2017-01-23] MEDS: SODIUM CHLORIDE 0.45% 1000ML 1,000 ML IVS PRN (18:02)
[2017-01-23] MEDS ORDERED: levoFLOXacin 500MG IV 100 ML IVPB ONE (20:51)
[2017-01-23] MEDS: guaiFENesin ER TAB 600 MG TAB PO SCH (20:57)
[2017-01-23] MEDS: levoFLOXacin 500MG IV 500 MG in PREMIX BAG 1 BAG IVPB SCH (20:57)
[2017-01-24] MEDS ORDERED: PANTOPRAZOLE SODIUM IV 40 MG VIAL ONE (01:34)
[2017-01-24] MEDS ORDERED: SODIUM CHLORIDE 0.9% 10 ML VIAL ONE (01:34)
[2017-01-24] MEDS: methylPREDNISolone SODIUM SUC 40 MG/ML VIAL IV SCH ×4 (04:12→22:30)
[2017-01-24] MEDS: SODIUM CHLORIDE 0.9% (FLUSH) 10 ML SYG IV PRN ×3 (04:16→22:30)
[2017-01-24] MEDS ORDERED: PANTOPRAZOLE SODIUM IV 40 MG VIAL IV SCH (06:30)
--- NOTE | 2017-01-24 07:22 | RAD ---
EXAM: Two view chest. INDICATION: Chest pain. COMPARISON: Chest x-ray: 01/23/2017. FINDINGS: Cardiac silhouette: Unremarkable. Ester: Unremarkable. Lobar consolidation: None. Pleural effusion: None. Pneumothorax: None. Other: None Bones: Unremarkable. Other: None. IMPRESSION: No acute cardiopulmonary abnormality Electronically signed by: Rajiv Markham MD 01/24/2017 7:20 AM CDT
[2017-01-24] MEDS: IPRATROPIUM/ALBUTEROL 3 ML VIAL INH SCH ×4 (08:25→20:26)
[2017-01-24] MEDS: guaiFENesin ER TAB 600 MG TAB PO SCH ×2 (08:59→20:39)
[2017-01-24] MEDS: NICOTINE PATCH 14 MG TD SCH (08:59)
[2017-01-24] MEDS ORDERED: SODIUM CHLORIDE 0.9% 10 ML VIAL IV PRN (09:14)
[2017-01-24] MEDS: SODIUM CHLORIDE 0.45% 1000ML 1,000 ML IVS PRN ×2 (11:04→23:58)
[2017-01-24] MEDS ORDERED: LANSOPRAZOLE 30 MG PO SCH (12:15)
[2017-01-24] MEDS: CLOPIDOGREL 75 MG TAB PO SCH (13:35)
[2017-01-24] MEDS: amLODIPine BESYLATE 5 MG TAB PO SCH (13:35)
[2017-01-24] MEDS: CARVEDILOL 12.5 MG TAB PO SCH ×2 (13:35→20:39)
[2017-01-24] MEDS: PANTOPRAZOLE SODIUM TAB 40 MG PO SCH (17:03)
[2017-01-24] MEDS: NON-FORMULARY MEDICATION 1 EA MIS (Linaclotide [Linzess] 290 MCG) PO SCH (17:04)
[2017-01-24] MEDS ORDERED: levoFLOXacin 500MG IV 100 ML IVPB ONE (19:59)
--- NOTE | 2017-01-24 20:14 | PN ---
DATE: 01/24/17 SUPERVISING PHYSICIAN: Hossein Lugo M.D. SUBJECTIVE: The patient says she feels somewhat better but continues to have a significant cough and is unable to fully clear sputum. She does still have some shortness of breath despite utilizing O2 with nasal cannula, but remains afebrile. OBJECTIVE: VITAL SIGNS: T max 97.5, pulse 94, blood pressure 186/68, respirations 18, O2 sat showing 92% nasal cannula at 2 liters at rest. I's and O's show a negative balance of 331 with 1469 in, 1800 out. Weight 73.1 kg. CHEST: Lung sounds are somewhat improved today, although she continues to have some coarse sounds towards the bases but no audible wheezing is noted today. Breath sounds do continue to be diminished. HEART: Regular rate and rhythm. ABDOMEN: Soft, non-tender. Positive bowel sounds. EXTREMITIES: No clubbing, cyanosis or edema. NEUROLOGIC: She is alert and oriented times three. LABORATORY: White count now has normalized to 10.7, hemoglobin 15.1, hematocrit 45.3, platelet count 301,000. Differential does show a left shift today. Chemistries show normal electrolytes with potassium 4.3, BUN 22, creatinine 0.73. RADIOLOGY: Repeat chest x-ray today per radiology interpretation of two view chest shows no acute cardiopulmonary abnormalities. ASSESSMENT: 1. Acute exacerbation of chronic obstructive pulmonary disease having failed to respond to multiple rounds of antibiotic therapy, including corticosteroids in the outpatient setting with concerns now for early developing pneumonia versus bronchitis. 2. Leukocytosis likely secondary to number 1, possibly some degree of steroid administration although showing normalization today. 3. Moderate dehydration, improved after IV therapy. 4. History of coronary artery disease with stents. 5. History of abdominal aortic aneurysm. 6. History of chronic tobacco abuse in a patient with longstanding history of chronic obstructive pulmonary disease. 7. Chronic neck pain and lower back pain. 8. Hypertension. 9. History of congestive heart failure, unknown etiology without any current echocardiogram for review with normal BNP on admission. 10. Gastroesophageal reflux disease. PLAN: Will continue with current plan of care with the addition of bronchial hygiene increasing to utilize CPT to help with mobilization of some secretions along with adding Mucinex to her medication regimen. She is on Levaquin currently as she mentioned later after admission that she was allergic to Azithromycin. She did get 1 dose of Rocephin. Anticipate possible discharge maybe tomorrow or Friday. Until then, will continue to monitor the patient closely and treat appropriately. #[id number] [facility]
[2017-01-24] MEDS: levoFLOXacin 500MG IV 500 MG in PREMIX BAG 1 BAG IVPB SCH (20:31)
[2017-01-24] MEDS: SIMVASTATIN 20 MG TAB PO SCH (20:39)
[2017-01-24] MEDS: ALPRAZolam 0.5 MG TAB PO PRN (20:45)
[2017-01-24] MEDS: PROMETHAZINE W/CODEINE SYR 5 ML UD PO PRN (22:59)
[2017-01-25] MEDS: methylPREDNISolone SODIUM SUC 40 MG/ML VIAL IV SCH ×2 (04:35→10:23)
[2017-01-25] MEDS: PANTOPRAZOLE SODIUM TAB 40 MG PO SCH ×2 (06:13→16:25)
[2017-01-25] MEDS: NON-FORMULARY MEDICATION 1 EA MIS (Linaclotide [Linzess] 290 MCG) PO SCH (06:14)
[2017-01-25] MEDS: IPRATROPIUM/ALBUTEROL 3 ML VIAL INH SCH ×4 (07:30→19:35)
[2017-01-25] MEDS: POTASSIUM CHLORIDE 10 MEQ TAB PO SCH ×2 (08:02→16:25)
[2017-01-25] MEDS: NICOTINE PATCH 14 MG TD SCH (08:50)
[2017-01-25] MEDS: CELECOXIB 100 MG CAP PO SCH (08:50)
[2017-01-25] MEDS: ASPIRIN EC 81 MG TAB PO SCH (08:51)
[2017-01-25] MEDS: amLODIPine BESYLATE 5 MG TAB PO SCH (08:51)
[2017-01-25] MEDS: guaiFENesin ER TAB 600 MG TAB PO SCH ×2 (08:51→20:32)
[2017-01-25] MEDS: CARVEDILOL 12.5 MG TAB PO SCH ×2 (08:51→20:32)
[2017-01-25] MEDS: CLOPIDOGREL 75 MG TAB PO SCH (08:51)
[2017-01-25] MEDS: TORSEMIDE TAB 20 MG PO SCH (08:51)
[2017-01-25] MEDS: SODIUM CHLORIDE 0.45% 1000ML 1,000 ML IVS PRN (13:56)
--- NOTE | 2017-01-25 16:21 | PN ---
DATE: 01/25/17 SUPERVISING PHYSICIAN: Hossein Lugo M.D. SUBJECTIVE: The patient continues to improve clinically. We did start CPT which has been doing well to help the patient mobilize her sputum. She continues to have some shortness of breath but notes it has improved and she does wear oxygen at home. She remains afebrile as well. OBJECTIVE: VITAL SIGNS: T max 98.0, pulse 70, blood pressure 130/68, respirations 18, O2 sat 94% nasal cannula at 2 liters at rest. I's and O's show a negative balance of 1446 with 3254 in, 4700 out. She has had 1 bowel movement. Weight 73.1 kg. CHEST: Lungs are fairly clear today but continue to be diminished towards the bases. There is no audible wheezing. HEART: Regular rate and rhythm. ABDOMEN: Soft, non-tender. Positive bowel sounds. EXTREMITIES: No clubbing, cyanosis or edema. NEUROLOGIC: She is alert and oriented times three. LABORATORY: White count did increase to 15.1 from 10.7 yesterday, although she remains on steroids. Hemoglobin 14.4, hematocrit 43.5, platelet count 333,000. Differential continues to show a left shift. Chemistries show to be within normal limits with potassium 4.0, BUN 18, creatinine 0.7, calcium 9.4. MICROBIOLOGY: Blood cultures remain negative after 24 hours. Sputum culture shows no growth at 48 hours. Group A Strep was not isolated at 48 hours. RADIOLOGY: Repeat chest x-ray will be done in the morning. ASSESSMENT: 1. Acute exacerbation of chronic obstructive pulmonary disease having failed to respond to multiple rounds of antibiotic therapy that included corticosteroids in the outpatient setting with concerns for early developing of pneumonia versus bronchitis. 2. Leukocytosis likely secondary to number 1, although initially improved has reoccurred likely secondary to continuation of corticosteroids. 3. Moderate dehydration, improved after IV therapy. 4. History of coronary artery disease with stents. 5. History of abdominal aortic aneurysm. 6. History of chronic tobacco abuse in a patient with longstanding history of chronic obstructive pulmonary disease. 7. Chronic neck and lower back pain. 8. Hypertension. 9. History of congestive heart failure, unknown etiology without a current echocardiogram for review with her BNP being normal on admission. 10. Gastroesophageal reflux disease. PLAN: The patient continues to show good improvement clinically. Will continue with current plan of care to include corticosteroids with a continued tapered dose with starting of p.o. Prednisone in the morning. Will continue with Levofloxacin for antibiotic coverage and provide her with aggressive pulmonary hygiene treatments. Hope to discharge in the morning after reevaluation of CBC, x-rays and clinical presentation. Until then, will continue to monitor the patient closely and treat appropriately. #[id number] [facility]
[2017-01-25] MEDS: PROMETHAZINE W/CODEINE SYR 5 ML UD PO PRN (18:18)
[2017-01-25] MEDS ORDERED: levoFLOXacin 500MG IV 100 ML IVPB ONE (18:50)
[2017-01-25] MEDS: levoFLOXacin 500MG IV 500 MG in PREMIX BAG 1 BAG IVPB SCH (20:24)
[2017-01-25] MEDS: ALPRAZolam 0.5 MG TAB PO PRN (20:32)
[2017-01-25] MEDS: SIMVASTATIN 20 MG TAB PO SCH (20:33)
--- NOTE | 2017-01-25 22:40 | PCM.CORE ---
Physician DVT/VTE - Nurse DVT Assessment & Total Each Risk Factor Represents 3 Points: Hx of DVT/PE, Medical PT with Hx of OK, CHF, Severe infection/sepsis Each Risk Factor Represents 2 Points: Age 60-74 Each Risk Factor Represents 1 Point: Medical PT at Bed Rest, Hx of smoking past year Each Risk Factor is 1 Point: Obesity (BMI >25) DVT Assessment Score: 11 - 5 or more Very High Risk Treatments: Early Ambulation *, Sequential Compression Device Pharmacological: Enoxaparin 40mg SQ Daily
[2017-01-25] MEDS ORDERED: ENOXAPARIN SODIUM 40 MG/0.4 ML SYG SUBCU SCH (23:00)
[2017-01-26] MEDS: SODIUM CHLORIDE 0.45% 1000ML 1,000 ML IVS PRN (03:08)
[2017-01-26] MEDS: PANTOPRAZOLE SODIUM TAB 40 MG PO SCH (06:11)
[2017-01-26] MEDS: NON-FORMULARY MEDICATION 1 EA MIS (Linaclotide [Linzess] 290 MCG) PO SCH (06:11)
--- NOTE | 2017-01-26 06:50 | RAD ---
EXAM: Two view chest. INDICATION: Chest pain. COMPARISON: Chest x-ray: 01/24/2017. FINDINGS: Cardiac silhouette: Unremarkable. Ester: Unremarkable. Lobar consolidation: None. Pleural effusion: None. Pneumothorax: None. Other: None. Bones: Unremarkable. Other: None. IMPRESSION: 1. No acute cardiopulmonary process. Electronically signed by: Rajiv Markham MD 01/26/2017 6:49 AM CDT
[2017-01-26] MEDS ORDERED: predniSONE 20 MG TAB ONE (07:24)
[2017-01-26] MEDS: IPRATROPIUM/ALBUTEROL 3 ML VIAL INH SCH ×2 (07:30→11:35)
[2017-01-26] MEDS: POTASSIUM CHLORIDE 10 MEQ TAB PO SCH (08:02)
[2017-01-26] MEDS: ASPIRIN EC 81 MG TAB PO SCH (08:56)
[2017-01-26] MEDS: CELECOXIB 100 MG CAP PO SCH (08:56)
[2017-01-26] MEDS: TORSEMIDE TAB 20 MG PO SCH (08:56)
[2017-01-26] MEDS: amLODIPine BESYLATE 5 MG TAB PO SCH (08:56)
[2017-01-26] MEDS: guaiFENesin ER TAB 600 MG TAB PO SCH (08:56)
[2017-01-26] MEDS: CLOPIDOGREL 75 MG TAB PO SCH (08:56)
[2017-01-26] MEDS: CARVEDILOL 12.5 MG TAB PO SCH (08:56)
[2017-01-26] MEDS: NICOTINE PATCH 14 MG TD SCH (08:56)
[2017-01-26] MEDS ORDERED: predniSONE 20 MG TAB PO SCH (09:00)
[2017-01-26 10:11] VITALS: BP 145/69; TEMP 97.8
[2017-01-26 13:58] VITALS: O2SAT 94
[2017-01-26] MEDS ORDERED: ENOXAPARIN SODIUM 40 MG/0.4 ML SYG SUBCU SCH (21:00)
--- NOTE | 2017-01-27 09:48 | DS ---
SUPERVISING PHYSICIAN: Hossein Lugo MD DISCHARGE DIAGNOSIS: 1. Acute exacerbation of chronic obstructive pulmonary disease having failed to respond to multiple rounds of antibiotic therapy in outpatient setting that included corticosteroids with concerns for early developing of pneumonia versus chronic bronchitis. 2. Leukocytosis likely secondary to number 1, showing improvement although reoccurrence that was felt to be secondary to initiation of corticosteroids. 3. Moderate dehydration, improved after IV therapy. 4. History of coronary artery disease with stents. 5. History of abdominal aortic aneurysm. 6. History of chronic tobacco abuse in a patient with longstanding history of chronic obstructive pulmonary disease who does wear oxygen p.r.n. 7. Chronic neck and lower back pain. 8. Hypertension. 9. History of congestive heart failure, unknown etiology without a current echocardiogram for review with her BNP being normal on admission. 10. Gastroesophageal reflux disease. HISTORY OF PRESENT ILLNESS: Ms. Beltrán is a 71 year-old female patient of Dr. Hernandez'matthew who was seen in the clinic on date of admission for routine wellness visit. She has a significant history of chronic obstructive pulmonary disease and in the last 30 days has had multiple episodes and exacerbation of her chronic obstructive pulmonary disease requiring antibiotics and steroids. She was seen in the Emergency Room this past Friday prior to admission and was given a prescription for Bactrim and a Medrol Dosepak. In the clinic on admission date, the patient was having a significant cough with purulent sputum production, worsening wheezing and dyspnea with 02 saturation showing 91% on nasal cannula at 2 liters. The patient is 02 dependent and wears 02 at home 26/05. She is currently as smoker, approximately half pack a day. X-rays in the clinic completed showed this past Friday as well, no significant changes, just chronic obstructive pulmonary disease appearing lungs with no obvious consolidations. Initial white count in the Emergency Department this past Friday was 14,000, sputum culture showed normal eddie. On date of admission her laboratory studies in the clinic showed her to have a white count of 17,000. The patient has been on multiple antibiotics in the month with initially being on doxycycline on 01/04/17 and again followed up for additional antibiotic coverage on 01/19/17 and was started on Bactrim. Given that the patient has been on multiple rounds of antibiotics with minimal improvement in her symptoms and continues to have purulent looking sputum, worsening dyspnea despite her oxygen and multiple rounds of steroids as well, the patient was admitted directly from the clinic for exacerbation of her chronic obstructive pulmonary disease having failed to respond to outpatient treatment. She was admitted in stable condition. LABORATORY: White count initially on admission was 16.5. It did decrease to a low of 10.7, however, after initiation of corticosteroids it increased to 15.1 and at time of discharge was 15.3. Hemoglobin and hematocrit remained stable and at discharge was 14.3 and 43.9. Platelet count was within normal limits at 328,000. Differential did show a left shift. Chemistries initially on admission showed normal electrolytes. They remained fairly normal and at discharge her potassium was slightly low at 3.4 but she did have good diuresis while she was in the hospital. BUN and creatinine showed to be 27 and 0.96 on admission, discharge was 25, creatinine 0.74. Liver functions on admission showed to be within normal limits. BNP normal at 30. Urinalysis on admission was within normal limits. She also had a group A strep that was negative as well as a group A culture that showed no group A isolated at 48 hours. She also had influenza A by PCR testing that showed to be negative. She had blood cultures x2 that remained negative after 3 days as well as she had a sputum culture that showed normal eddie at 48 hours. RADIOLOGY: Initial chest x-ray on admission per radiology interpretation showed hyperexpansion of the chest consistent with chronic obstructive pulmonary disease more pronounced than previous x-rays. Repeat x-ray after admission per radiology interpretation, 2-view chest showed no acute cardiopulmonary abnormalities. Last x-ray on followup prior to discharge per radiology interpretation showed no acute cardiopulmonary processes. HOSPITAL COURSE: Ms. Beltrán is a 71 year-old female patient who was admitted as noted in the history of present illness for exacerbation of chronic obstructive pulmonary disease. She was started on antibiotics that included Levaquin, corticosteroids with Solu-Medrol and acute Duoneb treatments along with CPT therapy. She did show good improvement in her symptoms and on date of discharge was felt to be clinically improved well enough to be discharged home to continue with antibiotic therapy in the outpatient setting and have close clinical followup with Dr. Hernandez. PLAN: The patient was discharged on 01/26/17 with instructions to call Dr. Hernandez's office on Friday to have scheduled followup within the next 7 days or earlier. She was to resume all her previous medications except to stop the antibiotics and if not finished, the Medrol Dosepak. She was instructed to stop smoking and to not smoke with her oxygen. She was to use her oxygen as prescribed and as instructed to assist with her oxygenation levels. She was to continue with incentive spirometry exercises to help improve lung function and also encouraged to increase her activities as tolerated. She was instructed to return to the hospital should she have any worsening of her condition or no improvement in her symptoms. At time of discharge, new prescriptions included: 1. Levofloxacin 500 mg, #7. 2. Guaifenesin extended release 600 mg twice a day #14. 3. Prednisone tapering Dosepak 20 mg tablet with 40 mg daily starting on day 5 , #14. All other medications were continued as noted in medical records. She was discharged in stable condition. Diet to be advanced to regular as prior to admission to the hospital. #[id number] [facility]
== END 2017-01-26 12:45 | disposition home health service (06) | DRG 190 ==
LOC: MS 15:01
PROVIDERS: ADMIT Nurse Practitioner Family; ATTEND Nurse Practitioner Family
DX: J44.0 Chronic obstructive pulmonary disease with (acute) lower respiratory infection (principal); J18.9 Pneumonia, unspecified organism; J44.1 Chronic obstructive pulmonary disease with (acute) exacerbation; J40 Bronchitis, not specified as acute or chronic; E86.0 Dehydration; I25.10 Atherosclerotic heart disease of native coronary artery without angina pectoris; G89.29 Other chronic pain; M54.2 Cervicalgia; M54.5 Low back pain; I11.0 Hypertensive heart disease with heart failure; I50.9 Heart failure, unspecified; I71.4 Abdominal aortic aneurysm, without rupture; I44.7 Left bundle-branch block, unspecified; K59.00 Constipation, unspecified; K21.9 Gastro-esophageal reflux disease without esophagitis; F17.210 Nicotine dependence, cigarettes, uncomplicated; Z99.81 Dependence on supplemental oxygen; Z95.5 Presence of coronary angioplasty implant and graft; Z88.0 Allergy status to penicillin; Z88.1 Allergy status to other antibiotic agents; Z88.8 Allergy status to other drugs, medicaments and biological substances

== ENCOUNTER 2017-11-03 11:15 | Emergency (ER) | payer MEDICARE, OTHER ==
[2017-11-03] MEDS ORDERED: IPRATROPIUM/ALBUTEROL 3 ML VIAL NEB ONE ×2 (11:26→11:29)
[2017-11-03] MEDS ORDERED: methylPREDNISolone SODIUM SUC 125 MG/2 ML VIAL IV ONE (11:29)
--- NOTE | 2017-11-03 11:32 | ED.PDOC ---
History of Present Illness - General Chief Complaint: Respiratory Problem Stated Complaint: fever, sob Time Seen by Provider: 11/03/17 11:26 Source: patient, family - History of Present Illness Initial Comments: PT PRESENTS TO THE ED WITH COMPLAINT OF SOB, COUGH, FEVER, AND BODYACHES FOR THE PAST 4 DAYS. PT BECAME ACUTELY SOB EN ROUTE TO THE ED. PT REQUIRES MY IMMEDIATE ATTENTION. Activities at Onset: none Improving Factors: nothing Associated Symptoms: cough, fever Allergies/Adverse Reactions: Allergies Diazepam [From Valium] Allergy (Verified 11/03/17 11:28) Penicillin G Allergy (Verified 11/03/17 11:28) Azithromycin [From Zithromax Z-Fortino] Adverse Reaction (Intermediate, Verified 11/20 11:28) Other Pt states "it doesn't work on me". Varenicline [From Chantix] Adverse Reaction (Intermediate, Verified 11/03/17 11: 28) Other Loses appetite and "I become a zombie, I don't talk or eat or interact with anyone". Home Medications: Ambulatory Orders Aspirin (Enteric Coated) 81 mg PO AM 10/09/12 Celecoxib [Celebrex] 200 mg PO AM 10/09/12 Clopidogrel Bisulfate [Plavix] 75 mg PO DAILY 10/09/12 Meclizine HCl [Antivert] 25 mg PO TID PRN 10/09/12 Nitroglycerin 0.4 mg (ER Disp) [Nitrostat] 0.4 mg SL PRN PRN 10/09/12 Potassium Chloride Tab [Micro-K] 10 meq PO BID 10/09/12 Simvastatin [Zocor] 20 mg PO HS 10/09/12 Albuterol Sulfate [Proair Hfa] 2 inh IN Q4H 12/07/13 Linaclotide [Linzess] 290 mcg PO DAILY 03/02/14 Pregabalin [Lyrica] 150 mg PO BEDTIME 12/26/14 Carvedilol [Coreg] 25 mg PO BID #60 tab 12/27/14 Amlodipine Besylate [Norvasc] 5 mg PO DAILY 11/04/15 Torsemide 20 mg PO DAILY 06/01/16 Lansoprazole 30 mg PO BID 09/20/16 Methylprednisolone [Medrol Dose Fortino] 4 mg PO DAILY #1 pack 11/19/16 Sulfamethoxazole-Trimethoprim [Bactrim Ds 800-160 mg] 1 tab PO BID #20 tab 01/19 ALPRAZolam [Xanax] 0.5 mg PO BID PRN 01/23/17 Albuterol Sulfate 1.25 mg NEB QID 01/23/17 guaiFENesin ER TAB [Mucinex Tab] 600 mg PO BID #14 tab 01/26/17 levoFLOXacin [Levaquin] 500 mg PO DAILY #7 tab 01/26/17 predniSONE 40 mg PO DAILY #14 tab 01/26/17 Benzonatate Perles [Tessalon Perles] 200 mg PO TID PRN #30 cap 11/03/17 Levofloxacin [Levaquin] 750 mg PO DAILY 5 Days #5 tablet 11/03/17 Prednisone 50 mg PO DAILY 5 Days #5 tab 11/03/17 Review of Systems - Review of Systems Constitutional: States: fever, malaise. Denies: chills EENTM: States: nose congestion. Denies: throat pain Respiratory: States: see HPI, cough, short of breath Cardiology: Denies: chest pain, syncope Gastrointestinal/Abdominal: Denies: nausea, vomiting Genitourinary: Denies: dysuria, frequency Musculoskeletal: Denies: joint pain, joint swelling Skin: Denies: dryness, lesions Neurological: Denies: headache, paresthesia Past Medical History (General) - Patient Medical History Hx Seizures: No Hx Stroke: Yes - Mini-Strokes Hx Dementia: No Hx Asthma: No Hx of COPD: Yes Hx Cardiac Disorders: Yes - Cardiac stents, [place] Hx Congestive Heart Failure: Yes Hx Pacemaker: No Hx Hypertension: Yes Hx Thyroid Disease: No Hx Diabetes: No Hx Gastroesophageal Reflux: Yes Hx Renal Disease: No Hx Cancer: No Hx of HIV: No Hx Hepatitis C: No Hx MRSA: No - Vaccination History Hx Tetanus, Diphtheria Vaccination: Yes Hx Influenza Vaccination: Yes Hx Pneumococcal Vaccination: Yes - Social History Hx Tobacco Use: Yes Hx Chewing Tobacco Use: No Hx Alcohol Use: No Hx Substance Use: No Hx Substance Use Treatment: No Hx Depression: No Hx Physical Abuse: No Hx Emotional Abuse: No Hx Suspected Abuse: No - Female History Patient : No Family Medical History - Family History Mother Family History: Unknown Name: Mother Living Status: Age at (years of age): 80 Cause of : Cardiac Disease and Cancer Hx Family Asthma: Yes Hx Family Congestive Heart Failure: No Hx Family Hypertension: Yes Hx Family Stroke: Yes Hx Cardiac Disease: Yes Hx Family Diabetes: Yes Hx Family Cancer: Yes Physical Exam - Physical Exam General Appearance: Alert, Anxious, Obvious distress, Well Hydrated, Well Nourished Eyes, Ears, Nose, Throat Exam: normal ENT inspection Neck: non-tender, full range of motion, supple Respiratory: respiratory distress, decreased breath sounds, accessory muscle use , wheezing Cardiovascular/Chest: no murmur, tachycardia Gastrointestinal/Abdominal: non tender, soft Extremity: normal range of motion, non-tender, normal inspection Neurologic: alert, oriented x 3 Skin Exam: normal color, warm/dry Lymphatic: no adenopathy Progress - Progress Progress: 11/03/17 12:15 PT REPORTS SIGNIFICANT IMPROVEMENT IN DYSPNEA AFTER DUONEB X 2. WHEEZING HAS RESOLVED. 11/03/17 14:38 PT CONTINUES TO REST COMFORTABLY, NO RESPIRATORY DISTRESS, LUNGS REMAIN CTA AFTER IV MAGNESIUM AND LEVAQUIN. PT WAS ABLE TO AMBULATE TO BATHROOM WITH DIFFICULTY. LABS AND DIAGNOSTICS DISCUSSED. PT FEELS COMFORTABLE BEING DISCHARGED HOME. - Results/Orders Results/Orders: 11/03/17 11:26 BLOOD CULTURE Stat EKG Assessment DAILY 11/03/17 11:27 Pulse Ox Stat 11/03/17 11:28 Telemetry ONCE Oxygen Delivery Assessment: QSHIFT Oxygen Stat Pulse Oximetry Assessment DAILY 11/03/17 11:30 EKG STAT Laboratory Results - last 24 hr 11/03/17 11/03/17 11/03/17 11:40 11:50 11:50 WBC 19.8 H RBC 4.91 Hgb 14.6 Hct 43.1 MCV 87.7 MCH 29.7 MCHC 33.9 RDW 13.3 Plt Count 353 MPV 9.1 Absolute Neuts (auto) 15.00 H Absolute Lymphs (auto) 2.20 Absolute Monos (auto) 2.10 H Absolute Eos (auto) 0.30 Absolute Basos (auto) 0.20 H Neutrophils % 75.5 Lymphocytes % 11.2 L Monocytes % 10.8 H Eosinophils % 1.7 Basophils % 0.8 pCO2 29 L pO2 102 HCO3 20.9 ABG pH 7.480 H ABG O2 Saturation 99.6 H ABG Base Excess -1.0 ABG Deoxyhemoglobin 0.4 Oxyhemoglobin % 97.3 Carboxyhemoglobin % 1.5 Methemoglobin % Sat 0.7 Calc Total Hemoglobin 14.3 Sodium 131 L Potassium 4.1 Chloride 97 L Carbon Dioxide 22 Anion Gap 16.1 BUN 8 Creatinine 0.68 BUN/Creatinine Ratio 11.8 Random Glucose 132 H Serum Osmolality 262.9 L Calcium 9.8 Total Bilirubin 0.6 AST 24 ALT 16 Alkaline Phosphatase 128 H B-Natriuretic Peptide 195.0 H Serum Total Protein 8.0 Albumin 4.2 Globulin 3.8 H Albumin/Globulin Ratio 1.1 - EKG/XRAY/CT EKG: Sinus - @94BPM WITH OCC PVCS. , LBBB, Unchanged from - JANUARY 2017 XRAY: chest - NO ACTIVE DISEASE NOTED. Departure - Departure Clinical Impression: COPD with acute exacerbation, Fever, Acute bronchitis, Leukocytosis Time of Disposition: 14:42 Disposition: Discharge to Home or Self Care Condition: Good Departure Forms: ED Discharge - Pt. Copy, Patient Portal Self Enrollment Instructions: DI for Acute Bronchitis, DI for Chronic Obstructive Pulmonary Disease Referrals: Faustino Hernandez MD [Primary Care Provider] - 1-5 Days Prescriptions: Benzonatate Perles [Tessalon Perles] 200 mg PO TID PRN #30 cap PRN Reason: Cough Levofloxacin [Levaquin] 750 mg PO DAILY 5 Days #5 tablet Prednisone 50 mg PO DAILY 5 Days #5 tab Home Medications: Ambulatory Orders Aspirin (Enteric Coated) 81 mg PO AM 10/09/12 Celecoxib [Celebrex] 200 mg PO AM 10/09/12 Clopidogrel Bisulfate [Plavix] 75 mg PO DAILY 10/09/12 Meclizine HCl [Antivert] 25 mg PO TID PRN 10/09/12 Nitroglycerin 0.4 mg (ER Disp) [Nitrostat] 0.4 mg SL PRN PRN 10/09/12 Potassium Chloride Tab [Micro-K] 10 meq PO BID 10/09/12 Simvastatin [Zocor] 20 mg PO HS 10/09/12 Albuterol Sulfate [Proair Hfa] 2 inh IN Q4H 12/07/13 Linaclotide [Linzess] 290 mcg PO DAILY 03/02/14 Pregabalin [Lyrica] 150 mg PO BEDTIME 12/26/14 Carvedilol [Coreg] 25 mg PO BID #60 tab 12/27/14 Amlodipine Besylate [Norvasc] 5 mg PO DAILY 11/04/15 Torsemide 20 mg PO DAILY 06/01/16 Lansoprazole 30 mg PO BID 09/20/16 Methylprednisolone [Medrol Dose Fortino] 4 mg PO DAILY #1 pack 11/19/16 Sulfamethoxazole-Trimethoprim [Bactrim Ds 800-160 mg] 1 tab PO BID #20 tab 01/19 ALPRAZolam [Xanax] 0.5 mg PO BID PRN 01/23/17 Albuterol Sulfate 1.25 mg NEB QID 01/23/17 guaiFENesin ER TAB [Mucinex Tab] 600 mg PO BID #14 tab 01/26/17 levoFLOXacin [Levaquin] 500 mg PO DAILY #7 tab 01/26/17 predniSONE 40 mg PO DAILY #14 tab 01/26/17 Benzonatate Perles [Tessalon Perles] 200 mg PO TID PRN #30 cap 11/03/17 Levofloxacin [Levaquin] 750 mg PO DAILY 5 Days #5 tablet 11/03/17 Prednisone 50 mg PO DAILY 5 Days #5 tab 11/03/17
--- NOTE | 2017-11-03 12:18 | RAD ---
EXAM DESCRIPTION: Chest,1 View CLINICAL HISTORY: 72 years Female, SOB COMPARISON: January 26, 2017 TECHNIQUE: AP portable chest. FINDINGS: Lungs are clear. No consolidation. Heart normal size. IMPRESSION: Normal. Electronically signed by: Kleber Sandoval MD 11/03/2017 12:17 PM DIRECTOR OF ENTERPRISE ARCHITECTURE
[2017-11-03] MEDS ORDERED: levoFLOXacin 750MG IV 750 MG in PREMIX BAG 1 BAG IVPB ONE (12:40)
[2017-11-03] MEDS ORDERED: MAGNESIUM SULFATE PREMIX 2GM 2 GM in PREMIX BAG 1 BAG IVPB ONE (12:41)
[2017-11-03] MEDS ORDERED: MAGNESIUM SULFATE PREMIX 2GM 50 ML IVPB ONE (12:45)
[2017-11-03 14:11] VITALS: TEMP 98.9
[2017-11-03 15:40] VITALS: BP 140/66; O2SAT 97
== END 2017-11-03 15:15 | disposition home or self-care (01) ==
LOC: ER 11:15
DX: J44.1 Chronic obstructive pulmonary disease with (acute) exacerbation (principal); J20.9 Acute bronchitis, unspecified; J44.0 Chronic obstructive pulmonary disease with (acute) lower respiratory infection; D72.829 Elevated white blood cell count, unspecified; Z86.73 Personal history of transient ischemic attack (TIA), and cerebral infarction without residual deficits; I25.2 Old myocardial infarction; I11.0 Hypertensive heart disease with heart failure; I50.9 Heart failure, unspecified; K21.9 Gastro-esophageal reflux disease without esophagitis; Z87.891 Personal history of nicotine dependence
CPT/HCPCS: 36415; 36600; 71010; 80053; 82803; 82805; 83880; 85025; 87040; 87502; 94640; 94760; J1956; J2930; J3475; J7620

== ENCOUNTER → 2018-01-26 | Outpatient (CLI) | payer MEDICARE, OTHER | LOC: GMAH 11:58 | PROVIDERS: ATTEND Family Medicine | DX: I10 Essential (primary) hypertension (principal); E78.2 Mixed hyperlipidemia ==

== ENCOUNTER → 2019-01-28 | Outpatient (CLI) | payer MEDICARE, OTHER | LOC: GMAH 11:54 | PROVIDERS: ATTEND Family Medicine | DX: I10 Essential (primary) hypertension (principal) ==

== ENCOUNTER → 2020-03-24 | Outpatient (CLI) | payer MEDICARE, OTHER ==
--- NOTE | 2020-03-28 09:53 | US ---
EXAM DESCRIPTION: Venous,Lower Extremity LT: ULTRASOUND. CLINICAL HISTORY: EDEMA. Left lower extremity. COMPARISON: None Available. TECHNIQUE: Tang-scale and doppler sonographic evaluation of the deep venous system of the left lower extremity. FINDINGS: Doppler evaluation shows normal color flow and normal phasicity and augmentation of the left common femoral vein, femoral vein, popliteal vein, greater saphenous vein, junction with the CFV. Also normal color flow and normal phasicity and augmentation of the peroneal, and posterior tibial vein. The left lower extremity deep veins were completely compressible; normal occlusion with transducer pressure. Tang-scale survey showed no echogenic thrombus within these veins. IMPRESSION: 1. Duplex ultrasound evaluation of the left lower extremity deep venous system showing no evidence of thrombosis. Electronically signed by: Gal Ruiz MD 03/28/2020 9:52 AM CDT
== END ==
LOC: US 13:27
PROVIDERS: ATTEND Family Medicine
DX: R60.0 Localized edema (principal)

== ENCOUNTER → 2020-03-30 | Outpatient (CLI) | payer MEDICARE, OTHER | LOC: GMA MATASK 14:47 | PROVIDERS: ATTEND Family Medicine | DX: E78.2 Mixed hyperlipidemia (principal); E11.9 Type 2 diabetes mellitus without complications ==

== ENCOUNTER 2020-07-20 12:17 | Emergency (ER) | payer MEDICARE, OTHER ==
--- NOTE | 2020-07-20 12:39 | ED.PDOC ---
History of Present Illness - General Chief Complaint: General Time Seen by Provider: 07/20/20 12:19 - History of Present Illness Initial Comments: 75 yo F with hx of CHF, COPD, CAD with 6 stents (follows Mario Gonzales) come in with 3days of worsening cough, congestion. Daughter bought mucinex which seemed to help until this morning when she woke up feeling weak, shortness of breath and worsening cough congestion. denies chest pain, n/v. [place] like she was going to pass out, but no syncope. Follows Mario Gonzales in [place] for cardiology. Allergies/Adverse Reactions: Allergies Diazepam [From Valium] Allergy (Verified 11/03/17 11:28) Penicillin G Allergy (Verified 11/03/17 11:28) Azithromycin [From Zithromax Z-Fortino] Adverse Reaction (Intermediate, Verified 11/03/17 11:28) Other Pt states "it doesn't work on me". Varenicline [From Chantix] Adverse Reaction (Intermediate, Verified 11/03/17 11:28) Other Loses appetite and "I become a zombie, I don't talk or eat or interact with anyone". Home Medications: Ambulatory Orders Aspirin (Enteric Coated) 81 mg PO AM 10/09/12 Celecoxib [Celebrex] 200 mg PO AM 10/09/12 Clopidogrel Bisulfate [Plavix] 75 mg PO DAILY 10/09/12 Meclizine HCl [Antivert] 25 mg PO TID PRN 10/09/12 Nitroglycerin 0.4 mg (ER Disp) [Nitrostat] 0.4 mg SL PRN PRN 10/09/12 Simvastatin [Zocor] 20 mg PO HS 10/09/12 Albuterol Sulfate [Proair Hfa] 2 inh IN Q4H 12/07/13 Linaclotide [Linzess] 290 mcg PO DAILY 03/02/14 Amlodipine Besylate [Norvasc] 5 mg PO DAILY 11/04/15 Torsemide 20 mg PO BID 06/01/16 ALPRAZolam [Xanax] 0.5 mg PO BID PRN 01/23/17 Acetaminophen W/ Codeine [Tylenol W/ CODEINE #3] 1 tab PO Q4H PRN 07/20/20 Amitriptyline HCl [Elavil] 25 mg PO BEDTIME 07/20/20 Biotin [Biotin Maximum Strength] 10,000 mcg PO DAILY 07/20/20 Calcium Carbonate-Cholecalcife [Calcium 600+D 600-800 mg-Unit] 1 tab PO DAILY 07/20/20 Carvedilol 50 mg PO BID 07/20/20 Carvedilol [Coreg] 12.5 mg PO BID 07/20/20 Celecoxib 200 mg PO DAILY 07/20/20 Chlorzoxazone 500 mg PO DAILY PRN 07/20/20 Icosapent Ethyl [Vascepa] 2 gm PO BID 07/20/20 Ipratropium/Albuterol [Duoneb] 3 ml INH Q4H PRN 07/20/20 Lansoprazole [Prevacid] 30 mg PO BID 07/20/20 Metformin HCl [Fortamet] 500 mg PO BEDTIME 07/20/20 Multiple Vitamin [Multivitamin] 1 tab PO DAILY 07/20/20 Potassium Chloride [Potassium Chloride ER] 10 meq PO TID 07/20/20 Review of Systems - Review of Systems Constitutional: States: diaphoresis, weakness. Denies: chills, fever EENTM: Denies: blurred vision, double vision Respiratory: States: cough, short of breath, wheezing. Denies: stridor Cardiology: States: chest pain, palpitations. Denies: edema, syncope Gastrointestinal/Abdominal: Denies: abdominal pain, diarrhea, vomiting Genitourinary: Denies: dysuria, frequency Musculoskeletal: Denies: back pain, joint pain, joint swelling, muscle pain, muscle stiffness Skin: Denies: change in color, rash Neurological: Denies: anxiety, depressed, headache, numbness Endocrine: Denies: increased hunger, unexplained weight gain, unexplained weight loss Hematologic/Lymphatic: Denies: anemia, blood clots, easy bleeding, easy bruising Past Medical History (General) - Patient Medical History Hx Seizures: No Hx Stroke: Yes - Mini-Strokes Hx Dementia: No Hx Asthma: No Hx of COPD: Yes Hx Cardiac Disorders: Yes - Cardiac stents, NE Hx Congestive Heart Failure: Yes Hx Pacemaker: No Hx Hypertension: Yes Hx Thyroid Disease: No Hx Diabetes: No Hx Gastroesophageal Reflux: Yes Hx Renal Disease: No Hx Cancer: No Hx of HIV: No Hx Hepatitis C: No Hx MRSA: No - Vaccination History Hx Tetanus, Diphtheria Vaccination: Yes Hx Influenza Vaccination: Yes Hx Pneumococcal Vaccination: Yes - Social History Hx Tobacco Use: Yes Hx Chewing Tobacco Use: No Hx Alcohol Use: No Hx Substance Use: No Hx Substance Use Treatment: No Hx Depression: No Hx Physical Abuse: No Hx Emotional Abuse: No Hx Suspected Abuse: No - Female History Patient : No Family Medical History - Family History Mother Family History: Unknown Name: Mother Living Status: Age at (years of age): 80 Cause of : Cardiac Disease and Cancer Hx Family Asthma: Yes Hx Family Congestive Heart Failure: No Hx Family Hypertension: Yes Hx Family Stroke: Yes Hx Cardiac Disease: Yes Hx Family Diabetes: Yes Hx Family Cancer: Yes Physical Exam - Physical Exam General Appearance: Alert, Comfortable, No apparent distress Eye Exam: bilateral normal Ears, Nose, Throat: hearing grossly normal, normal ENT inspection Neck: non-tender, full range of motion, supple, normal inspection Respiratory: chest non-tender, no respiratory distress, no accessory muscle use, wheezing Cardiovascular/Chest: normal peripheral pulses, no edema, no gallop, no JVD, no murmur, tachycardia, irregularly irregular Peripheral Pulses: radial,right: 2+, radial,left: 2+, dorsalis pedis,right: 2+, dorsalis pedis,left: 2+ Gastrointestinal/Abdominal: normal bowel sounds, non tender, soft, no organomegaly, no pulsatile mass Rectal Exam: deferred Back Exam: normal inspection Extremity: normal range of motion, non-tender, normal inspection, no pedal edema, no calf tenderness 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 will give 60 mg prednisone for copd as well as xopenox treatment for copd exacerbation. EKG shows HR 110 LBBB, with new onset A-fib, no acute ischemic changes. LBBB s een on prior ekg. Heart rate on monitor ranges from 105-135. Discussed with Dr. Gonzales office, last echo showed ef 60%. Will give 15 mg IV cardizem. Repeat EKG shows HR 97with continued a-fib. will start eliquis 5 mg. CXR shows LL pneumonia. was on antibiotics one month ago. Unsure what kind. Will avoid levaquin due to AAA hx. Blood cultures obtained. Will start cefepime. NS bolus. After 500 ml IVF, repeat bp 117/73 07/20/20 13:01 RESPIRATORY PANEL 2 Stat 07/20/20 13:07 URINALYSIS Stat 07/20/20 13:19 BLOOD CULTURE Stat 07/20/20 13:26 CTA Chest [CT] Stat - no PE. Laboratory Results WBC 17.5 K/mm3 (4.8-10.8) H 07/20/20 12:30 RBC 4.92 M/mm3 (4.20-5.40) 07/20/20 12:30 Hgb 14.9 gm/dL (12.0-16.0) 07/20/20 12:30 Hct 42.6 % (36.0-47.0) 07/20/20 12:30 MCV 86.6 fl (81.0-99.0) 07/20/20 12:30 MCH 30.3 pg (27.0-31.0) 07/20/20 12:30 MCHC 35.1 g/dL (33.0-37.0) 07/20/20 12:30 RDW 14.9 % (11.5-14.5) H 07/20/20 12:30 Plt Count 305 K/mm3 (130-400) 07/20/20 12:30 MPV 9.2 fl (7.40-10.4) 07/20/20 12:30 Absolute Neuts (auto) 11.80 K/uL (1.8-6.8) H 07/20/20 12:30 Absolute Lymphs (auto) 3.80 K/uL (1.0-3.4) H 07/20/20 12:30 Absolute Monos (auto) 1.40 K/uL (0.2-0.8) H 07/20/20 12:30 Absolute Eos (auto) 0.20 K/uL (0.0-0.4) 07/20/20 12:30 Absolute Basos (auto) 0.20 K/uL (0.0-0.1) H 07/20/20 12:30 Neutrophils % 67.4 % (42.0-78.0) 07/20/20 12:30 Lymphocytes % 21.9 % (20.0-50.0) 07/20/20 12:30 Monocytes % 8.1 % (2.0-9.0) 07/20/20 12:30 Eosinophils % 1.3 % (1.0-5.0) 07/20/20 12:30 Basophils % 1.3 % (0.0-2.0) 07/20/20 12:30 PT 10.5 SECONDS (9.0-10.9) 07/20/20 12:30 INR 1.06 (0.9-1.15) 07/20/20 12:30 PTT (SP) 26.3 SECONDS (21.8-31.6) 07/20/20 12:30 D-Dimer, Quantitative 561.0 ng/ml (131-400) H 07/20/20 12:30 Sodium 136 mmol/L (135-145) 07/20/20 12:30 Potassium 3.9 mmol/L (3.6-5.0) 07/20/20 12:30 Chloride 99 mmol/L (101-111) L 07/20/20 12:30 Carbon Dioxide 24 mmol/L (21-31) 07/20/20 12:30 Anion Gap 16.9 (12-18) 07/20/20 12:30 BUN 11 mg/dL (7-18) 07/20/20 12:30 Creatinine 0.92 mg/dL (0.6-1.3) 07/20/20 12:30 BUN/Creatinine Ratio 12.0 (10-20) 07/20/20 12:30 Random Glucose 162 mg/dL (70-105) H 07/20/20 12:30 Serum Osmolality 274.9 mOsm/L (275-295) L 07/20/20 12:30 Lactic Acid 2.3 mmol/L (0.5-2.2) H 07/20/20 13:14 Calcium 9.3 mg/dL (8.4-10.2) 07/20/20 12:30 Magnesium 1.8 mg/dL (1.8-2.5) 07/20/20 12:30 Total Bilirubin 1.0 mg/dL (0.2-1.0) 07/20/20 12:30 AST 23 IU/L (10-42) 07/20/20 12:30 ALT 18 IU/L (10-60) 07/20/20 12:30 Alkaline Phosphatase 118 IU/L (42-121) 07/20/20 12:30 Troponin I 0.03 ng/mL (0.01-0.05) 07/20/20 12:30 B-Natriuretic Peptide 237.0 pg/ml (0-100) H* 07/20/20 12:30 Serum Total Protein 7.3 gm/dL (6.4-8.2) 07/20/20 12:30 Albumin 4.1 g/dl (3.2-5.5) 07/20/20 12:30 Globulin 3.2 gm/dL (2.3-3.5) 07/20/20 12:30 Albumin/Globulin Ratio 1.3 (1.1-1.9) 07/20/20 12:30 TSH 3.99 uIU/mL (0.34-5.60) 07/20/20 12:30 Departure - Departure Clinical Impression: Atrial fibrillation with rapid ventricular response, New onset a-fib Pneumonia Qualifiers: Pneumonia type: due to unspecified organism Laterality: left Lung location: lower lobe of lung Qualified Code(s): J18.9 - Pneumonia, unspecified organism Disposition: Transfer to Hospital Condition: Fair Departure Forms: Patient Portal Self Enrollment Referrals: Manjinder Christine MD [Primary Care Provider] - 1-2 Weeks Home Medications: Ambulatory Orders Aspirin (Enteric Coated) 81 mg PO AM 10/09/12 Celecoxib [Celebrex] 200 mg PO AM 10/09/12 Clopidogrel Bisulfate [Plavix] 75 mg PO DAILY 10/09/12 Meclizine HCl [Antivert] 25 mg PO TID PRN 10/09/12 Nitroglycerin 0.4 mg (ER Disp) [Nitrostat] 0.4 mg SL PRN PRN 10/09/12 Simvastatin [Zocor] 20 mg PO HS 10/09/12 Albuterol Sulfate [Proair Hfa] 2 inh IN Q4H 12/07/13 Linaclotide [Linzess] 290 mcg PO DAILY 03/02/14 Amlodipine Besylate [Norvasc] 5 mg PO DAILY 11/04/15 Torsemide 20 mg PO BID 06/01/16 ALPRAZolam [Xanax] 0.5 mg PO BID PRN 01/23/17 Acetaminophen W/ Codeine [Tylenol W/ CODEINE #3] 1 tab PO Q4H PRN 07/20/20 Amitriptyline HCl [Elavil] 25 mg PO BEDTIME 07/20/20 Biotin [Biotin Maximum Strength] 10,000 mcg PO DAILY 07/20/20 Calcium Carbonate-Cholecalcife [Calcium 600+D 600-800 mg-Unit] 1 tab PO DAILY 07/20/20 Carvedilol 50 mg PO BID 07/20/20 Carvedilol [Coreg] 12.5 mg PO BID 07/20/20 Celecoxib 200 mg PO DAILY 07/20/20 Chlorzoxazone 500 mg PO DAILY PRN 07/20/20 Icosapent Ethyl [Vascepa] 2 gm PO BID 07/20/20 Ipratropium/Albuterol [Duoneb] 3 ml INH Q4H PRN 07/20/20 Lansoprazole [Prevacid] 30 mg PO BID 07/20/20 Metformin HCl [Fortamet] 500 mg PO BEDTIME 07/20/20 Multiple Vitamin [Multivitamin] 1 tab PO DAILY 07/20/20 Potassium Chloride [Potassium Chloride ER] 10 meq PO TID 07/20/20 Transfer to Outside Facility - Transfer Information Decision to Transfer Date: 07/20/20 Decision to Transfer Time: 13:20 Reason for Transfer: specialized care not available
[2020-07-20] MEDS: METOPROLOL TARTRATE INJ 5 MG/5 ML VIAL IV ONE (12:52)
[2020-07-20] MEDS ORDERED: predniSONE 20 MG TAB ONE (12:53)
[2020-07-20] MEDS: predniSONE 20 MG TAB PO ONE (12:53)
[2020-07-20] MEDS: LEVALBUTEROL NEBS 0.63 MG/3 ML VIAL NEB ONE (13:07)
[2020-07-20] MEDS: SODIUM CHLORIDE 0.9% 500ML 500 ML IVS ONE ×2 (13:20→14:48)
--- NOTE | 2020-07-20 13:22 | RAD ---
EXAM DESCRIPTION: Chest,2 Views CLINICAL HISTORY: shortness of breath COMPARISON: Previous study November 03, 2017 TECHNIQUE: PA/lateral FINDINGS: Heart size is prominent with normal pulmonary vascularity. No pleural effusion or pneumothorax. Partial volume loss or infiltrate in the lingula partly obscuring the left heart margin. Lateral view shows intact sternum and osteopenic T-spine. Slight blunting the posterior costophrenic angles could be trace pleural fluid. IMPRESSION: Partial volume loss or infiltrate in the lingula obscuring the left heart margin. Prominent heart without congestive failure. Electronically signed by: Luis Miguel Yancey MD 07/20/2020 1:20 PM CDT
[2020-07-20] MEDS: CEFEPIME 1 GM in SODIUM CHLORIDE 0.9% 50ML 50 ML IVPB ONE (14:01)
--- NOTE | 2020-07-20 14:06 | CT ---
EXAM DESCRIPTION: CTA Chest CLINICAL HISTORY: 75 years Female, short of breath, elevated ddimer COMPARISON: CTA chest 11/19/2016 TECHNIQUE: CT images through the thorax with IV contrast using PE protocol. Multiplanar reformations provided. This examination was performed according to a CT angiographic (CTA) protocol with 3D post-processing. This involves 3D reconstructions, MIPS, volume rendered images and/or shaded surface rendering. This exam was performed according to our departmental dose-optimization program, which includes automated exposure control, adjustment of the mA and/or kV according to patient size and/or use of iterative reconstruction technique. CT CHEST PE FINDINGS: Pulmonary arteries and vascular: Diagnostic quality bolus. No filling defects. Nondilated main pulmonary arterial trunk. Mild to moderate calcified atherosclerosis. Heart and mediastinum: Normal heart size. No pericardial effusion. Unremarkable esophagus. No mediastinal or hilar adenopathy. Thyroid Gland: Normal. Lungs: Dependent atelectasis bilaterally. Airways: Normal. Pleura: Normal. Musculoskeletal and Soft Tissues: No acute fracture or aggressive appearing osseous lesion. Soft tissues unremarkable. Subphrenic Structures: Normal. IMPRESSION: 1. No pulmonary embolus. 2. Atherosclerosis. Electronically signed by: Jaskaran Madsen MD 07/20/2020 2:04 PM CDT
[2020-07-20] MEDS: APIXABAN 5 MG TAB PO ONE (14:38)
[2020-07-20 15:15] VITALS: TEMP 96.2
[2020-07-20 15:43] VITALS: BP 149/75; O2SAT 95
[2020-07-20] MEDS: IPRATROPIUM BROMIDE NEBS 0.5 MG/2.5 ML VIAL NEB ONE (18:33)
== END 2020-07-20 15:30 | disposition short-term general hospital (02) ==
LOC: ER 12:17
DX: J18.1 Lobar pneumonia, unspecified organism (principal); J44.1 Chronic obstructive pulmonary disease with (acute) exacerbation; I48.91 Unspecified atrial fibrillation; I11.0 Hypertensive heart disease with heart failure; I50.9 Heart failure, unspecified; I25.2 Old myocardial infarction; K21.9 Gastro-esophageal reflux disease without esophagitis; I44.7 Left bundle-branch block, unspecified; Z79.899 Other long term (current) drug therapy; Z79.84 Long term (current) use of oral hypoglycemic drugs; Z86.73 Personal history of transient ischemic attack (TIA), and cerebral infarction without residual deficits; Z79.82 Long term (current) use of aspirin; Z79.02 Long term (current) use of antithrombotics/antiplatelets; Z88.0 Allergy status to penicillin; Z88.8 Allergy status to other drugs, medicaments and biological substances
CPT/HCPCS: 36415; 71046; 71275; 80053; 81001; 83605; 83735; 83880; 84443; 84484; 85025; 85379; 85610; 85730; 87040; 87635; 93005; 94640; A4216; J0692; J7040; J7512; J7614